=== PATIENT | male | born 1955 | race Caucasian/White ===

== ENCOUNTER → 2018-06-18 | Outpatient (CLI) | payer OTHER | END | disposition home or self-care (01) | LOC: RADMRIMAIN 06:25 | PROVIDERS: ATTEND Nurse Practitioner | DX: Z53.9 Procedure and treatment not carried out, unspecified reason (principal) ==

== ENCOUNTER 2018-09-24 18:47 | Inpatient (IN) | payer OTHER ==
[2018-09-24] MEDS ORDERED: SODIUM CHLORIDE 0.9% 1,000 ML IV ONE (19:49)
[2018-09-24] MEDS ORDERED: ceFAZolin IN SWFI 2 GM/20 ML SYRINGE IVP ONE (19:49)
--- NOTE | 2018-09-24 19:57 | ED ---
Lower Extremity Injury HPI - General Chief Complaint: Extremity Injury, Lower Stated Complaint: red line on left foot poss infection Time Seen by Provider: 09/24/18 19:34 Source: patient, RN notes reviewed, old records reviewed Mode of arrival: ambulatory Limitations: no limitations - History of Present Illness Initial Comments: Patient is a 63-year-old male with history of diabetes presents emergency Department today with complaints of significant swelling over his left second toe and redness and pain going up the foot and the lower leg. Patient reports that his symptoms started 2 days ago. He states that he's had a previous wound over his bottom of his left foot and it was managed by Dr. Browning. Patient states that she he recently has A1c checked was 6.1. He otherwise has been doing well. He denies any fevers or chills. He reports that he's been having some tenderness and swelling in his left calf for a few weeks. Patient states t hat he seems to always have some or swelling on the left leg. He reports he's noticed increased erythema extending up the leg. - Related Data Home Medications Medication Instructions Recorded Confirmed Aspirin [Adult Low Dose Aspirin EC] 81 mg PO DAILY 02/24/16 09/24/18 Clopidogrel [Plavix] 75 mg PO DAILY 02/24/16 09/24/18 Enalapril [Vasotec] 20 mg PO DAILY 02/24/16 09/24/18 Methadone HCl [Dolophine HCl] 20 mg PO Q6H PRN 02/24/16 09/24/18 Carvedilol [Coreg] 12.5 mg PO BID 09/24/18 09/24/18 Gabapentin 800 mg PO QID 09/24/18 09/24/18 Simvastatin 40 mg PO DAILY 09/24/18 09/24/18 metFORMIN HCL 1,000 mg PO BID 09/24/18 09/24/18 Allergies Allergy/AdvReac Type Severity Reaction Status Date / Time nitroglycerin AdvReac Unknown Verified 09/24/18 20:56 Review of Systems ROS Statement: Those systems with pertinent positive or pertinent negative responses have been documented in the HPI. ROS Other: All systems not noted in ROS Statement are negative. Past Medical History Past Medical History: Coronary Artery Disease (CAD), Diabetes Mellitus, Hyperlipidemia, Hypertension, Vascular Disorder History of Any Multi-Drug Resistant Organisms: None Reported Past Surgical History: Coronary Bypass/CABG, Heart Catheterization, Heart Catheterization With Stent, Orthopedic Surgery Additional Past Surgical History / Comment(s): left wrist subluxed tendon repair, bilateral cataract removal, fem pop bypass 2013 Past Anesthesia/Blood Transfusion Reactions: No Reported Reaction Date of Last Stent Placement:: 1999 Past Psychological History: No Psychological Hx Reported Smoking Status: Former smoker Past Alcohol Use History: None Reported Past Drug Use History: None Reported - Past Family History Mother Family Medical History: No Reported History Father Family Medical History: Coronary Artery Disease (CAD) General Exam - General Exam Comments Initial Comments: 63-year-old male. Alert and oriented 3. Patient appears in no significant distress. Limitations: no limitations General appearance: alert, in no apparent distress Head exam: Present: atraumatic, normocephalic, normal inspection Eye exam: Present: normal appearance, PERRL, EOMI. Absent: scleral icterus, conjunctival injection, periorbital swelling ENT exam: Present: normal exam, mucous membranes moist Neck exam: Present: normal inspection. Absent: tenderness, meningismus, lymphadenopathy Respiratory exam: Present: normal lung sounds bilaterally. Absent: respiratory distress, wheezes, rales, rhonchi, stridor Cardiovascular Exam: Present: regular rate, normal rhythm, normal heart sounds. Absent: systolic murmur, diastolic murmur, rubs, gallop, clicks GI/Abdominal exam: Present: soft, normal bowel sounds. Absent: distended, tenderness, guarding, rebound, rigid Extremities exam: Present: normal inspection, full ROM, normal capillary refill. Absent: tenderness, pedal edema, joint swelling, calf tenderness Left Knee exam: Present: normal inspection, full ROM Lower Leg exam: Present: full ROM, tenderness, swelling, erythema (Patient has tenderness, swelling erythema extending up the lower leg."). Absent: normal inspection Ankle exam: Present: normal inspection, full ROM Foot/Toe exam: Present: full ROM, swelling (Patient has significant swelling and pus draining from the medial aspect of the left second toe. It appears to be the source from an ingrown toenail.), erythema (Erythema extend from the second toe to the dorsum of the foot.). Absent: normal inspection, abrasion Neurovascular tendon exam: Present: no vascular compromise Gait: observed and limited by pain Back exam: Present: normal inspection Neurological exam: Present: alert, oriented X3, CN II-XII intact Psychiatric exam: Present: normal affect, normal mood Skin exam: Present: warm, dry, intact, normal color. Absent: rash Course Vital Signs 09/24/18 19:00 Temperature 98.7 F Pulse Rate 71 Respiratory 18 Rate Blood Pressure 166/95 O2 Sat by Pulse 97 Oximetry Medical Decision Making - Medical Decision Making Patient is a 63-year-old male presents today with a left second toe infection. He has history of diabetes. 2 infection is related to an ingrown toenail. He has significant erythema and swelling over the distal toe. X-ray was completely negative for osteomyelitis at this time. He does have extensive redness and swelling of the leg. I did do a Doppler ultrasound is negative for DVT. Patient's labwork was reviewed and unremarkable. Patient did have blood cultures obtained. Patient started on 2 g of Kefzol. I will initiate the Patient on Zosyn and vancomycin will keep the Patient in for diabetic ulcer. We'll consult who took care of patient's previous left foot ulceration. - Lab Data Result diagrams: 09/24/18 20:24 09/24/18 20:24 Lab Results 09/24/18 09/24/18 09/24/18 Range/Units 20:24 20:24 20:24 WBC 7.1 (3.8-10.6) k/uL RBC 5.46 (4.30-5.90) m/uL Hgb 16.2 (13.0-17.5) gm/dL Hct 47.0 (39.0-53.0) % MCV 86.1 (80.0-100.0) fL MCH 29.7 (25.0-35.0) pg MCHC 34.5 (31.0-37.0) g/dL RDW 15.0 (11.5-15.5) % Plt Count 171 (150-450) k/uL Neutrophils % 70 % Lymphocytes % 20 % Monocytes % 6 % Eosinophils % 2 % Basophils % 1 % Neutrophils # 5.0 (1.3-7.7) k/uL Lymphocytes # 1.4 (1.0-4.8) k/uL Monocytes # 0.5 (0-1.0) k/uL Eosinophils # 0.2 (0-0.7) k/uL Basophils # 0.1 (0-0.2) k/uL Sodium 139 (137-145) mmol/L Potassium 4.1 (3.5-5.1) mmol/L Chloride 99 (98-107) mmol/L Carbon Dioxide 28 (22-30) mmol/L Anion Gap 12 mmol/L BUN 15 (9-20) mg/dL Creatinine 0.82 (0.66-1.25) mg/dL Est GFR (CKD-EPI)AfAm >90 (>60 ml/min/1.73 sqM) Est GFR (CKD-EPI)NonAf >90 (>60 ml/min/1.73 sqM) Glucose 194 H (74-99) mg/dL Plasma Lactic Acid Truman 1.7 (0.7-2.0) mmol/L Calcium 9.6 (8.4-10.2) mg/dL Total Bilirubin 1.4 H (0.2-1.3) mg/dL AST 25 (17-59) U/L ALT 14 L (21-72) U/L Alkaline Phosphatase 62 (38-126) U/L Total Protein 7.4 (6.3-8.2) g/dL Albumin 4.4 (3.5-5.0) g/dL - Radiology Data Radiology results: report reviewed Doppler ultrasound is negative for DVT. No x-ray evidence for osteomyelitis with particular attention to the left second toe. Disposition Clinical Impression: Ingrown toenail with infection, Left leg cellulitis, Diabetes Disposition: HOME SELF-CARE Condition: Good Is patient prescribed a controlled substance at d/c from ED?: No Referrals: Justin Mckinley DO [Primary Care Provider] - 1-2 days Time of Disposition: 21:36
[2018-09-24 20:40] LABS: Basophils # (A) 0.1 k/uL (0-0.2); Basophils % (A) 1 %; Eosinophils # (A) 0.2 k/uL (0-0.7); Eosinophils % (A) 2 %; HGB 16.2 gm/dL (13.0-17.5); Lymphocytes # (A) 1.4 k/uL (1.0-4.8); Lymphocytes % (A) 20 %; MCH 29.7 pg (25.0-35.0); MCHC 34.5 g/dL (31.0-37.0); MCV 86.1 fL (80.0-100.0); Mean Platelet Volume 8.4; Monocytes # (A) 0.5 k/uL (0-1.0); Monocytes % (A) 6 %; Neutrophils % (A) 70 %; Platelet Count 171 k/uL (150-450); RBC 5.46 m/uL (4.30-5.90); WBC 7.1 k/uL (3.8-10.6)
--- NOTE | 2018-09-24 20:42 | XR ---
EXAMINATION TYPE: XR foot complete LT DATE OF EXAM: 09/24/2018 CLINICAL HISTORY: The second digit redness and swelling. TECHNIQUE: Frontal, lateral, and oblique images of the left foot are obtained. COMPARISON: None FINDINGS: There is no acute fracture/dislocation evident in the left foot. Flexion in the toes is pr esent. Accessory ossicles near cuboid bone are seen. No suspicious cortical destruction or periosteal reaction is present. Mild subcutaneous edema along plantar surface hindfoot level is seen IMPRESSION: There is no convincing radiographic evidence for acute osteomyelitis with particular att ention to left second toe.
--- NOTE | 2018-09-24 20:47 | US ---
EXAMINATION TYPE: US venous doppler duplex LE LT DATE OF EXAM: 09/24/2018 8:34 PM COMPARISON: NONE CLINICAL HISTORY: Pain. Left leg pain and swelling from ingrown toe nail. SIDE PERFORMED: Left TECHNIQUE: The lower extremity deep venous system is examined utilizing real time linear array sonog melissa with graded compression, doppler sonography and color-flow sonography. VESSELS IMAGED: External Iliac Vein (EIV) Common Femoral Vein Deep Femoral Vein Greater Saphenous Vein * Femoral Vein Popliteal Vein Small Saphenous Vein * Proximal Calf Veins (* superficial vessels) Left Leg: Negative for DVT Grayscale, color doppler, spectral doppler imaging performed of the deep veins of the left lower extr emity. There is normal flow, compressibility, vascular waveforms. IMPRESSION: No ultrasound evidence for acute DVT in the left lower extremity.
[2018-09-24 20:53] LABS: ALT 14 U/L (21-72); AST 25 U/L (17-59); Albumin 4.4 g/dL (3.5-5.0); Alkaline Phosphatase 62 U/L (38-126); Anion Gap 12 mmol/L; Blood Urea Nitrogen 15 mg/dL (9-20); Calcium 9.6 mg/dL (8.4-10.2); Carbon Dioxide 28 mmol/L (22-30); Chloride 99 mmol/L (98-107); Glucose 194 mg/dL (74-99); Potassium 4.1 mmol/L (3.5-5.1); Sodium 139 mmol/L (137-145); Total Bilirubin 1.4 mg/dL (0.2-1.3); Total Protein 7.4 g/dL (6.3-8.2)
[2018-09-24] MEDS: SODIUM CHLORIDE 0.9% 1,000 ML IV SCH (21:00)
[2018-09-24] MEDS ORDERED: NALOXONE 0.4 MG/ML 1 ML VIAL IV PRN (21:37)
[2018-09-24] MEDS ORDERED: ONDANSETRON 4 MG/2 ML VIAL IVP PRN (21:37)
[2018-09-24] MEDS ORDERED: ACETAMINOPHEN TAB 325 MG TAB PO PRN (21:37)
[2018-09-24] MEDS ORDERED: VANCOMYCIN IV PER PHARMACY 1 EACH MISC MISCELLANE PRN (21:41)
[2018-09-24] MEDS ORDERED: VANCOMYCIN 1,750 MG in SODIUM CHLORIDE 0.9% 500 ML 500 ML IVPB ONE (22:00)
[2018-09-24] MEDS: GABAPENTIN 400 MG CAP PO SCH (23:00)
[2018-09-24] MEDS: KETOROLAC 30 MG/ML 1 ML VIAL IVP PRN (23:04)
[2018-09-25] MEDS: PIPERACILLIN-TAZOBACTAM 3.375 GM in SODIUM CHLORIDE 0.9% 100 ML IVPB SCH ×3 (02:06→16:28)
[2018-09-25] MEDS: SODIUM CHLORIDE 0.9% 1,000 ML IV SCH ×2 (05:45→19:56)
[2018-09-25] MEDS: CARVEDILOL 12.5 MG TAB PO SCH ×2 (08:07→18:14)
[2018-09-25] MEDS: CLOPIDOGREL 75 MG TAB PO SCH (08:08)
[2018-09-25] MEDS: ASPIRIN 81 MG PO SCH (08:08)
[2018-09-25] MEDS: ATORVASTATIN 20 MG TAB PO SCH (08:08)
[2018-09-25] MEDS: GABAPENTIN 400 MG CAP PO SCH ×4 (08:08→21:54)
[2018-09-25] MEDS: METHADONE 10 MG TAB PO PRN (08:08)
[2018-09-25] MEDS: LISINOPRIL 20 MG TAB PO SCH (08:09)
[2018-09-25] MEDS: metFORMIN 500 MG TAB PO SCH ×2 (08:09→19:56)
[2018-09-25] MEDS: KETOROLAC 30 MG/ML 1 ML VIAL IVP PRN ×2 (08:10→19:56)
[2018-09-25 09:57] VITALS: BMI 28.1
[2018-09-25] MEDS: VANCOMYCIN 1,750 MG in SODIUM CHLORIDE 0.9% 500 ML 500 ML IVPB SCH ×2 (11:25→21:52)
[2018-09-25] MEDS: MORPHINE SULFATE 4 MG/ML SYRINGE IV PRN ×3 (11:40→20:36)
--- NOTE | 2018-09-25 17:14 | P.GSCN ---
History of Present Illness Consult date: 09/25/18 Reason for Consult: Erythema left foot second toe, possible infection. Requesting physician: Yeyo Hernandez History of present illness: This is a 63-year-old male patient who is followed by Justin Mckinley. He is a past medical history significant for coronary artery disease status post coronary artery bypass grafting in 2000 and 2011, diabetes mellitus type 2, hypertension, hyperlipidemia, daily marijuana use, history of nicotine dependence with in 1987, family history of early onset coronary artery disease with his dad passing away at age 54 from a myocardial infarction and vascular disorder status post fem-pop bypass in 2012. The patient presented to the emergency department here at [facility] yesterday with complaints of significant redness, pain and swelling to his left foot second left toe. He reports that it started as an ingrown toenail on Monday and progressed with redness and swelling over a 2 day period. He denies any fevers, chills, nausea, vomiting, or recent trauma. His initial lab work showed a WBC count of 7.1, hemoglobin 16.2, BUN 15, creatinine 0.8 to any glucose level of 194. For further evaluation and x-ray was completed which demonstrated no convincing radiographic evidence for acute osteomyelitis with particular attention to the left second toe. A venous duplex study was also completed to his bilateral lower extremities which did not show any evidence for acute DVT in the left lower extremity. Due to the patient's presenting symptoms and history of wound care management by Dr. Browning a consult was placed to Dr. Browning for further evaluation and treatment recommendations. Review of Systems A 14 point review of systems was completed and was negative except as mentioned in HPI. Past Medical History Past Medical History: Coronary Artery Disease (CAD), Diabetes Mellitus, Hyp erlipidemia, Hypertension, Vascular Disorder History of Any Multi-Drug Resistant Organisms: None Reported Past Surgical History: Adenoidectomy, Coronary Bypass/CABG, Heart Catheterization, Heart Catheterization With Stent, Orthopedic Surgery, Tonsill ectomy Additional Past Surgical History / Comment(s): left wrist subluxed tendon repair, bilateral cataract removal, fem pop bypass 2012, history of coronary artery bypass grafting 1 vessel in 2000 and a CABG 3 in 2011. Past Anesthesia/Blood Transfusion Reactions: No Reported Reaction Date of Last Stent Placement:: 1999 Past Psychological History: No Psychological Hx Reported Smoking Status: Former smoker (Quit smoking in 1987.) Past Alcohol Use History: None Reported Past Drug Use History: None Reported, Marijuana Additional Drug Use History / Comment(s): Daily marijuana use in the form of cookies. - Past Family History Mother Family Medical History: No Reported History, Dementia Additional Family Medical History / Comment(s): at age 96 Father Family Medical History: Coronary Artery Disease (CAD), Myocardial Infarction ([place]) Additional Family Medical History / Comment(s): at age 54. Medications and Allergies Home Medications Medication Instructions Recorded Confirmed Type Aspirin [Adult Low Dose Aspirin EC] 81 mg PO DAILY 02/24/16 09/24/18 History Clopidogrel [Plavix] 75 mg PO DAILY 02/24/16 09/24/18 History Enalapril [Vasotec] 20 mg PO DAILY 02/24/16 09/24/18 History Methadone HCl [Dolophine HCl] 20 mg PO Q6H PRN 02/24/16 09/24/18 History Carvedilol [Coreg] 12.5 mg PO BID 09/24/18 09/24/18 History Gabapentin 800 mg PO QID 09/24/18 09/24/18 History Simvastatin 40 mg PO DAILY 09/24/18 09/24/18 History metFORMIN HCL 1,000 mg PO BID 09/24/18 09/24/18 History Allergies Allergy/AdvReac Type Severity Reaction Status Date / Time nitroglycerin AdvReac Unknown Verified 09/24/18 20:56 Surgical - Exam Vital Signs Temp Pulse Resp BP Pulse Ox 98.7 F 71 18 166/95 97 09/24/18 19:00 09/24/18 19:00 09/24/18 19:00 09/24/18 19:00 09/24/18 19:00 - General well developed, well nourished, no distress, no pain, obese - Eyes PERRL, normal ocular movement - ENT normal pinna, normal nares, normal mucosa, no hearing loss, no congestion, dentures (Implants) - Neck Neck is supple, no lymphadenopathy. no masses, no bruits, trachea midline, no venous distension - Respiratory Lungs sounds essentially clear throughout. Respirations are symmetrical and nonlabored. No wheezing. Oxygen saturation 94% on room air. - Cardiovascular Irregular rhythm with controlled rate. S1 and S2 present. Negative for S3, gallop or murmur. +1 edema to his left lower extremity. Peripheral pulses palpable. - Abdomen Soft, nontender and nondistended. Active bowel sounds all 4 abdominal quadrants. No guarding or rigidity. No organomegaly. - Genitourinary Deferred - Rectum Deferred - Integumentary Skin is warm and dry. No clubbing or cyanosis is present. Left foot second toe with erythema, small blistered area to the tip of his second toe left foot. No drainage present. - Neurologic normal coordination, normal sensation - Musculoskeletal normal gait, normal posture - Psychiatric oriented to time, oriented to person, oriented to place, speech is normal, memory intact Results - Labs 09/24/18 20:24 09/24/18 20:24 Abnormal Lab Results - Last 24 Hours (Table) 09/24/18 Range/Units 20:24 Glucose 194 H (74-99) mg/dL Total Bilirubin 1.4 H (0.2-1.3) mg/dL ALT 14 L (21-72) U/L Microbiology - Last 24 Hours (Table) 09/24/18 19:50 Gram Stain - Preliminary Toe - Left Second Wound Culture - Preliminary Diabetes panel 09/24/18 Range/Units 20:24 Sodium 139 (137-145) mmol/L Potassium 4.1 (3.5-5.1) mmol/L Chloride 99 (98-107) mmol/L Carbon Dioxide 28 (22-30) mmol/L BUN 15 (9-20) mg/dL Creatinine 0.82 (0.66-1.25) mg/dL Glucose 194 H (74-99) mg/dL Calcium 9.6 (8.4-10.2) mg/dL AST 25 (17-59) U/L ALT 14 L (21-72) U/L Alkaline Phosphatase 62 (38-126) U/L Total Protein 7.4 (6.3-8.2) g/dL Albumin 4.4 (3.5-5.0) g/dL Calcium panel 09/24/18 Range/Units 20:24 Calcium 9.6 (8.4-10.2) mg/dL Albumin 4.4 (3.5-5.0) g/dL Pituitary panel 09/24/18 Range/Units 20:24 Sodium 139 (137-145) mmol/L Potassium 4.1 (3.5-5.1) mmol/L Chloride 99 (98-107) mmol/L Carbon Dioxide 28 (22-30) mmol/L BUN 15 (9-20) mg/dL Creatinine 0.82 (0.66-1.25) mg/dL Glucose 194 H (74-99) mg/dL Calcium 9.6 (8.4-10.2) mg/dL Adrenal panel 09/24/18 Range/Units 20:24 Sodium 139 (137-145) mmol/L Potassium 4.1 (3.5-5.1) mmol/L Chloride 99 (98-107) mmol/L Carbon Dioxide 28 (22-30) mmol/L BUN 15 (9-20) mg/dL Creatinine 0.82 (0.66-1.25) mg/dL Glucose 194 H (74-99) mg/dL Calcium 9.6 (8.4-10.2) mg/dL Total Bilirubin 1.4 H (0.2-1.3) mg/dL AST 25 (17-59) U/L ALT 14 L (21-72) U/L Alkaline Phosphatase 62 (38-126) U/L Total Protein 7.4 (6.3-8.2) g/dL Albumin 4.4 (3.5-5.0) g/dL Assessment and Plan Assessment: 1. Ingrown toenail with cellulitis to his left foot second toe. 2. Diabetes mellitus type 2. 3. History of coronary artery disease status post coronary artery bypass grafting surgery in 2000 and 2011. 4. History of hypertension. 5. History of hyperlipidemia. 6. Daily marijuana use. 7. Vascular disorder with previous fem-pop bypass in 2012. 8. Family history of early onset coronary artery disease with his dad passing away from myocardial infarction at age 54. 9. History of nicotine dependence quit smoking in 1987. Plan: The patient was seen and examined. Chart diagnostics were reviewed. His case was discussed with Dr. Fred Browning from vascular surgery. At this time continue antibiotic management, we will consult Dr. Cohen from infectious disease. Recommend offloading to the left foot with no weightbearing. Local wound care, to breast to fully gauze in between the left great toe and second toe, cushioned with 4 x 4 gauze and wrapped with Kerlix. Medical management recommendations per primary care service. Thank you for this consult and we'll look forward to working with you in the care of your patient. Time with Patient: Greater than 30
[2018-09-25 20:30] LABS: Glucose,Whole Blood 157 mg/dL (75-99)
--- NOTE | 2018-09-26 00:09 | P.HPIM ---
History of Present Illness H&P Date: 09/25/18 Chief Complaint: Toe infection Patient is a 63-year-old male with a known history of hypertension, diabetes type 2 [id number], hyperlipidemia, coronary artery disease with history of CABG and stent placement, peripheral vascular disease and previous history of smoking came to ER with the complaints of swelling and redness over the left second toe and worsening pain for the last 2 days. Patient also having redness extending up to the ankle and worsening pain which made her to come to the hospital. He states that he's had a previous wound over his bottom of his left foot and it was managed by Dr. Browning. Patient states that she he recently has A1c checked was 6.1. He otherwise has been doing well. He denies any fevers or chills. Denied any chest pain or shortness of breath. X-ray of the left foot showed no convincing radiographic evidence for acute or stomatitis with particular attention to left second toe. No leukocytosis. Left lower extremities duplex scan is negative for DVT. Review of Systems Constitutional: Patient denies any fever or chills . No generalized weakness or weight loss. Abdomen: Patient denied nausea vomiting and diarrhea and abdominal pain. Cardiovascular: Patient denies any chest pain or short of breath no palpitations. Respiratory: patient denied any cough is from production. No shortness of breath Neurologic: Patient denied any numbness or tingling headache. Musculoskeletal: Patient denies any complaints of joint swelling or deformity. Left foot pain Skin: Negative Psychiatric: Negative Endocrine: No heat or cold intolerance. No recent weight gain. Genitourinary: No dysuria or hematuria. All other 14 point ROS negative except the above Past Medical History Past Medical History: Coronary Artery Disease (CAD), Diabetes Mellitus, Hyperlipidemia, Hypertension, Vascular Disorder History of Any Multi-Drug Resistant Organisms: None Reported Past Surgical History: Coronary Bypass/CABG, Heart Catheterization, Heart Catheterization With Stent, Orthopedic Surgery Additional Past Surgical History / Comment(s): left wrist subluxed tendon repair, bilateral cataract removal, fem pop bypass 2012 Past Anesthesia/Blood Transfusion Reactions: No Reported Reaction Date of Last Stent Placement:: 1999 Past Psychological History: No Psychological Hx Reported Smoking Status: Former smoker Past Alcohol Use History: None Reported Past Drug Use History: None Reported - Past Family History Mother Family Medical History: No Reported History Father Family Medical History: Coronary Artery Disease (CAD) Medications and Allergies Home Medications Medication Instructions Recorded Confirmed Type Aspirin [Adult Low Dose Aspirin EC] 81 mg PO DAILY 02/24/16 09/24/18 History Clopidogrel [Plavix] 75 mg PO DAILY 02/24/16 09/24/18 History Enalapril [Vasotec] 20 mg PO DAILY 02/24/16 09/24/18 History Methadone HCl [Dolophine HCl] 20 mg PO Q6H PRN 02/24/16 09/24/18 History Carvedilol [Coreg] 12.5 mg PO BID 09/24/18 09/24/18 History Gabapentin 800 mg PO QID 09/24/18 09/24/18 History Simvastatin 40 mg PO DAILY 09/24/18 09/24/18 History metFORMIN HCL 1,000 mg PO BID 09/24/18 09/24/18 History Allergies Allergy/AdvReac Type Severity Reaction Status Date / Time nitroglycerin AdvReac Unknown Verified 09/24/18 20:56 Physical Exam Vitals: Vital Signs Temp Pulse Pulse Resp BP BP Pulse Ox 09/25/18 12:42 97.9 F 54 L 18 166/76 94 L 09/25/18 08:06 60 175/82 09/25/18 05:34 97.5 F L 53 L 18 142/73 94 L 09/24/18 23:30 16 09/24/18 23:00 98 F 62 16 167/90 92 L 09/24/18 21:51 98.8 F 65 18 160/89 97 09/24/18 19:00 98.7 F 71 18 166/95 97 Intake and Output 09/24/18 09/25/18 09/25/18 22:59 06:59 14:59 Intake Total 1360 1999 Balance 1360 1999 Intake: Intake, IV Titration 1000 1400 Amount Piperacillin-Tazobactam 3 100 100 .375 gm In Sodium Chloride 0.9% 100 ml @ 25 mls/hr IVPB Q8HR [facility] Rx# :[id number] Sodium Chloride 0.9% 1, 400 800 000 ml @ 100 mls/hr IV . Q10H [facility] Rx#:[id number] Vancomycin 1,750 mg In 500 500 Sodium Chloride 0.9% 500 ml 500 ml @ 167 mls/hr IVPB Q12H [facility] Rx#: [id number] Oral 360 600 Other: Voiding Method Toilet # Voids 1 2 Weight 102.058 kg 102.058 kg PHYSICAL EXAMINATION: Patient is lying in the bed comfortably, no acute distress, awake alert and oriented.. HEENT: Normocephalic. Neck is supple. Pupils reactive. Nostrils clear. Oral cavity is moist. Ears reveal no drainage. Neck reveals no JVD, carotid bruits, or thyromegaly. CHEST EXAMINATION: Trachea is central. Symmetrical expansion. Lung lockwood clear to auscultation and percussion. CARDIAC: Normal S1, S2 with no gallops. No murmurs ABDOMEN: Soft. Bowel sounds normal. No organomegaly. No abdominal bruits. Extremities: reveal no edema. No clubbing or cyanosis Left second toe small ulceration on the medial side with redness and tenderness extending up to ankle. No purulent drainage noted. Neurologically awake, alert, oriented x3 with well-coordinated movements. No focal deficits noted Skin: No rash or skin lesions. Psychiatric: Coperative. Nonsuicidal Musculoskeletal: No joint swelling or deformity. Normal range of motion. Results CBC & Chem 7: 09/24/18 20:24 09/24/18 20:24 Labs: Abnormal Lab Results - Last 24 Hours (Table) 09/24/18 Range/Units 20:24 Glucose 194 H (74-99) mg/dL Total Bilirubin 1.4 H (0.2-1.3) mg/dL ALT 14 L (21-72) U/L Microbiology - Last 24 Hours (Table) 09/24/18 19:50 Gram Stain - Preliminary Toe - Left Second Wound Culture - Preliminary Thrombosis Risk Factor Assmnt - DVT/VTE Prophylaxis DVT/VTE Prophylaxis: Pharmacologic Prophylaxis ordered - Choose All That Apply Any of the Below Risk Factors Present?: Yes Each Factor Represents 1 point: Obesity (BMI >25) Each Risk Factor Represents 2 Points: Age 61-74 years Thrombosis Risk Factor Assessment Total Risk Factor Score: 3 Thrombosis Risk Factor Assessment Level: Moderate Risk Assessment and Plan Assessment: Left second toe diabetic foot infection with cellulitis extending up to ankle. Peripheral vascular disease Coronary artery disease and history of CABG and stent placement Hypertension Diabetes type 2 nausea independent Hyperlipidemia Diabetic peripheral neuropathy Chronic back pain on methadone for a long time. Previous history of smoking DVT prophylaxis Plan: Patient will be continued on broad-spectrum antibiotics in the form of vancom ycin and Zosyn. Follow up wound cultures. Vascular surgery was consulted. Continue the home medications including aspirin statins and Plavix, Coreg and lisinopril. Continue the sliding scale and diabetic medications. Follow closely and further recommendations based on the clinical course. Time with Patient: Greater than 30
[2018-09-26] MEDS: PIPERACILLIN-TAZOBACTAM 3.375 GM in SODIUM CHLORIDE 0.9% 100 ML IVPB SCH ×3 (00:58→16:30)
[2018-09-26] MEDS: HEPARIN SODIUM,PORCINE 5,000 UNIT/ML 1 ML VIAL SQ SCH ×3 (00:59→14:21)
[2018-09-26] MEDS: SODIUM CHLORIDE 0.9% 1,000 ML IV SCH ×3 (03:22→22:31)
[2018-09-26] MEDS: METHADONE 10 MG TAB PO PRN ×4 (05:04→22:30)
[2018-09-26 07:04] LABS: Glucose,Whole Blood 94 mg/dL (75-99)
[2018-09-26] MEDS: CARVEDILOL 12.5 MG TAB PO SCH ×2 (08:13→14:21)
[2018-09-26] MEDS: ASPIRIN 81 MG PO SCH (08:17)
[2018-09-26] MEDS: metFORMIN 500 MG TAB PO SCH ×2 (08:17→21:32)
[2018-09-26] MEDS: GABAPENTIN 400 MG CAP PO SCH ×4 (08:17→21:05)
[2018-09-26] MEDS: ATORVASTATIN 20 MG TAB PO SCH (08:17)
[2018-09-26] MEDS: LISINOPRIL 20 MG TAB PO SCH (08:17)
[2018-09-26] MEDS: CLOPIDOGREL 75 MG TAB PO SCH (08:17)
[2018-09-26] MEDS ORDERED: VANCOMYCIN TROUGH DUE 1 EACH MISC MISCELLANE ONE (09:00)
[2018-09-26] MEDS: VANCOMYCIN 1,750 MG in SODIUM CHLORIDE 0.9% 500 ML 500 ML IVPB SCH ×2 (09:04→22:31)
--- NOTE | 2018-09-26 09:49 | P.CONS ---
History of Present Illness - Reason for Consult Consult date: 09/26/18 Infected left second toe, antibiotic management - History of Present Illness This is a 63-year-old male patient with past medical history significant for coronary artery disease status post coronary artery bypass grafting in 2000 and 2011, diabetes mellitus type 2, hypertension, hyperlipidemia, daily marijuana use, history of nicotine dependence quit in 1987, vascular disorder status post fem-pop bypass in 2012. Patient gives history that he developed an ingrown toenail on his left second toe on Monday and a progressed with redness and swelling over a 2 day. He complains of redness, pain and swelling. No fever or chills. No recent trauma. No change in appetite, nausea or vomiting. Patient came into [facility] emergency center for evaluation. White count is 7.1, creatinine 0.82, albumin 4.4. He has been afebrile. Blood culture showing no growth after 24 hours and wound cultures in progress. Foot x-ray revealed no convincing evidence of acute osteomyelitis. Venous duplex study of bilateral lower extremities negative for DVT. Patient has been started on Zosyn and vancomycin and admitted to the [facility] floor. Patient has been seen by Dr. Browning and local wound care has been addressed. Regarding patient's diabetes, hemoglobin A1c is currently pending. He states his previous hemoglobin A1c was at 6.1 which she has brought down from 12. Review of Systems All systems: negative Constitutional: Denies anorexia, Denies chills, Denies fatigue, Denies fever, Denies lethargy, Denies malaise, Denies poor appetite, Denies weakness Ears, nose, mouth and throat: Denies dental pain, Denies dysphagia, Denies mouth pain, Denies nasal congestion, Denies nasal discharge, Denies vertigo Cardiovascular: Denies chest pain, Denies dyspnea on exertion, Denies edema, Den ies leg edema, Denies lightheadedness, Denies syncope Respiratory: Denies cough, Denies cough with sputum, Denies dyspnea, Denies excessive sputum, Denies hemoptysis, Denies home oxygen, Denies wheezing Gastrointestinal: Denies constipation, Denies diarrhea, Denies loss of appetite, Denies nausea, Denies vomiting Genitourinary: Denies dysuria, Denies urinary frequency, Denies urinary hesitancy, Denies urinary retention Musculoskeletal: Denies frequent falls, Denies gait dysfunction, Denies muscle weakness Integumentary: Denies wounds Neurological: Denies confusion, Denies gait dysfunction, Denies seizures Psychiatric: Denies anxiety, Denies confusion, Denies depression Endocrine: Denies fatigue Past Medical History Past Medical History: Coronary Artery Disease (CAD), Diabetes Mellitus, Hyperlipidemia, Hypertension, Vascular Disorder History of Any Multi-Drug Resistant Organisms: None Reported Past Surgical History: Coronary Bypass/CABG, Heart Catheterization, Heart Catheterization With Stent, Orthopedic Surgery Additional Past Surgical History / Comment(s): left wrist subluxed tendon repair, bilateral cataract removal, fem pop bypass 2012 Past Anesthesia/Blood Transfusion Reactions: No Reported Reaction Date of Last Stent Placement:: 1999 Past Psychological History: No Psychological Hx Reported Smoking Status: Former smoker Past Alcohol Use History: None Reported Additional Past Alcohol Use History / Comment(s): Patient was a smoker and quit in 1987. He uses daily marijuana cookie for insomnia. He denies any illicit drug use or alcohol use. He lives at home with his girlfriend and 2 cats. 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 He denies any significant travel but did go to [facility] last year. No service. 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 Past Drug Use History: None Reported - Past Family History Mother Family Medical History: No Reported History Additional Family Medical History / Comment(s): at age 96 Father Family Medical History: Coronary Artery Disease (CAD) Additional Family Medical History / Comment(s): at age 54. Medications and Allergies Home Medications Medication Instructions Recorded Confirmed Type Aspirin [Adult Low Dose Aspirin EC] 81 mg PO DAILY 02/24/16 09/24/18 History Clopidogrel [Plavix] 75 mg PO DAILY 02/24/16 09/24/18 History Enalapril [Vasotec] 20 mg PO DAILY 02/24/16 09/24/18 History Methadone HCl [Dolophine HCl] 20 mg PO Q6H PRN 02/24/16 09/24/18 History Carvedilol [Coreg] 12.5 mg PO BID 09/24/18 09/24/18 History Gabapentin 800 mg PO QID 09/24/18 09/24/18 History Simvastatin 40 mg PO DAILY 09/24/18 09/24/18 History metFORMIN HCL 1,000 mg PO BID 09/24/18 09/24/18 History Allergies Allergy/AdvReac Type Severity Reaction Status Date / Time nitroglycerin AdvReac Unknown Verified 09/24/18 20:56 Physical Exam Vitals: Vital Signs Temp Pulse Resp BP Pulse Ox 09/26/18 05:00 97.7 F 64 17 157/85 93 L 09/25/18 23:25 17 09/25/18 21:00 98 F 56 L 17 176/85 93 L 09/25/18 12:42 97.9 F 54 L 18 166/76 94 L Intake and Output 09/25/18 09/26/18 09/26/18 22:59 06:59 14:59 Intake Total 1660 1370 Balance 1660 1370 Intake: Intake, IV Titration 700 550 Amount Piperacillin-Tazobactam 3 50 .375 gm In Sodium Chloride 0.9% 100 ml @ 25 mls/hr IVPB Q8HR [facility] Rx# :[id number] Sodium Chloride 0.9% 1, 200 000 ml @ 100 mls/hr IV . Q10H [facility] Rx#:[id number] Vancomycin 1,750 mg In 500 500 Sodium Chloride 0.9% 500 ml 500 ml @ 167 mls/hr IVPB Q12H [facility] Rx#: [id number] Oral 960 820 Other: Voiding Method Toilet Toilet Toilet # Voids 1 2 Gen: This is a 63-year-old male. He is resting in bed and appears to be comfortable and in no acute distress. HEENT: Head is atraumatic, normocephalic. Pupils equal, round. Sclerae is anicteric. Conjunctiva pink. Mucous members of the mouth are moist. No thrush noted. NECK: Supple. No JVD. No lymphadenopathy. No thyromegaly. LUNGS: Clear to auscultation. No wheezes or rhonchi. No intercostal retractions. HEART: Regular rate and rhythm. No murmur. ABDOMEN: Soft. Bowel sounds are present. No masses. No tenderness. EXTREMITIES: 1+ left pedal edema. Dressing in place and was not removed for evaluation. Dorsalis pedis +2 on the right. NEUROLOGICAL: Patient is awake, alert and oriented x3. Cranial nerves 2 through 12 are grossly intact. Results Results: Laboratory Results WBC 7.1 k/uL (3.8-10.6) 09/24/18 20:24 RBC 5.46 m/uL (4.30-5.90) 09/24/18 20:24 Hgb 16.2 gm/dL (13.0-17.5) 09/24/18 20:24 Hct 47.0 % (39.0-53.0) 09/24/18 20:24 MCV 86.1 fL (80.0-100.0) 09/24/18 20:24 MCH 29.7 pg (25.0-35.0) 09/24/18 20:24 MCHC 34.5 g/dL (31.0-37.0) 09/24/18 20:24 RDW 15.0 % (11.5-15.5) 09/24/18 20:24 Plt Count 171 k/uL (150-450) 09/24/18 20:24 Neutrophils % 70 % 09/24/18 20:24 Lymphocytes % 20 % 09/24/18 20:24 Monocytes % 6 % 09/24/18 20:24 Eosinophils % 2 % 09/24/18 20:24 Basophils % 1 % 09/24/18 20:24 Neutrophils # 5.0 k/uL (1.3-7.7) 09/24/18 20:24 Lymphocytes # 1.4 k/uL (1.0-4.8) 09/24/18 20:24 Monocytes # 0.5 k/uL (0-1.0) 09/24/18 20:24 Eosinophils # 0.2 k/uL (0-0.7) 09/24/18 20:24 Basophils # 0.1 k/uL (0-0.2) 09/24/18 20:24 Sodium 139 mmol/L (137-145) 09/24/18 20:24 Potassium 4.1 mmol/L (3.5-5.1) 09/24/18 20:24 Chloride 99 mmol/L (98-107) 09/24/18 20:24 Carbon Dioxide 28 mmol/L (22-30) 09/24/18 20:24 Anion Gap 12 mmol/L 09/24/18 20:24 BUN 15 mg/dL (9-20) 09/24/18 20:24 Creatinine 0.82 mg/dL (0.66-1.25) 09/24/18 20:24 Est GFR (CKD-EPI)AfAm >90 (>60 ml/min/1.73 sqM) 09/24/18 20:24 Est GFR (CKD-EPI)NonAf >90 (>60 ml/min/1.73 sqM) 09/24/18 20:24 Glucose 194 mg/dL (74-99) H 09/24/18 20:24 POC Glucose (mg/dL) 94 mg/dL (75-99) 09/26/18 07:02 POC Glu Collection Systems Worker ID Teresa Aguila 09/26/18 07:02 Plasma Lactic Acid Truman 1.7 mmol/L (0.7-2.0) 09/24/18 20:24 Calcium 9.6 mg/dL (8.4-10.2) 09/24/18 20:24 Total Bilirubin 1.4 mg/dL (0.2-1.3) H 09/24/18 20:24 AST 25 U/L (17-59) 09/24/18 20:24 ALT 14 U/L (21-72) L 09/24/18 20:24 Alkaline Phosphatase 62 U/L (38-126) 09/24/18 20:24 Total Protein 7.4 g/dL (6.3-8.2) 09/24/18 20:24 Albumin 4.4 g/dL (3.5-5.0) 09/24/18 20:24 CBC & Chem 7: 09/24/18 20:24 09/24/18 20:24 Labs: Abnormal Lab Results - Last 24 Hours (Table) 09/25/18 Range/Units 20:15 POC Glucose (mg/dL) 157 H (75-99) mg/dL Microbiology - Last 24 Hours (Table) 09/24/18 22:05 Blood Culture - Preliminary Blood No Growth after 24 hours 09/24/18 19:50 Gram Stain - Preliminary Toe - Left Second Wound Culture - Preliminary Assessment and Plan Plan: This is a 63-year-old male presented to the hospital with diabetic ulcer to the left second toe with surrounding cellulitis. Dr. Browning is on consult and managing wound care. Patient is currently on Zosyn and vancomycin. Blood culture showing no growth after 24 hours and wound culture is in process. Continue supportive care including tight glucose control. Further recommendations progresses. The above dictated assessment and findings were discussed with Dr. Cohen. The impression and plan of care have been directed as dictated. Zoie Robles nurse practitioner acting as scribe for Dr. Cohen.
--- NOTE | 2018-09-26 10:15 | P.WNDSOAP ---
Subjective Progress Note Date: 09/26/18 Principal diagnosis: Diabetic ulcer left second toe Patient has no significant complaints during his hospital stay. He has been afebrile and has had no fevers or chills. Objective - Vital Signs Vital signs: Vital Signs Temp 97.7 F 09/26/18 05:00 Pulse 64 09/26/18 05:00 Resp 17 09/26/18 05:00 BP 157/85 09/26/18 05:00 Pulse Ox 93 L 09/26/18 05:00 Intake & Output 09/25/18 09/26/18 09/26/18 18:59 06:59 18:59 Intake Total 1999 3030 Balance 1999 303 Weight 102.058 kg Intake: Intake, IV Titration 1400 1250 Amount Piperacillin-Tazobactam 3 100 50 .375 gm In Sodium Chloride 0.9% 100 ml @ 25 mls/hr IVPB Q8HR [facility] Rx# :[id number] Sodium Chloride 0.9% 1, 800 200 000 ml @ 100 mls/hr IV . Q10H [facility] Rx#:[id number] Vancomycin 1,750 mg In 500 1000 Sodium Chloride 0.9% 500 ml 500 ml @ 167 mls/hr IVPB Q12H [facility] Rx#: [id number] Oral 600 1780 Other: Voiding Method Toilet Toilet Toilet # Voids 2 2 - Exam He has an infected blister on the medial left second toe. - Labs CBC & Chem 7: 09/24/18 20:24 09/24/18 20:24 Labs: Abnormal Lab Results - Last 24 Hours (Table) 09/25/18 Range/Units 20:15 POC Glucose (mg/dL) 157 H (75-99) mg/dL Microbiology - Last 24 Hours (Table) 09/24/18 22:05 Blood Culture - Preliminary Blood No Growth after 24 hours 09/24/18 19:50 Gram Stain - Preliminary Toe - Left Second Wound Culture - Preliminary Assessment and Plan (1) Diabetic ulcer of left foot with fat layer exposed Current Visit: No Status: Acute Code(s): E11.621 - TYPE 2 DIABETES MELLITUS WITH FOOT ULCER; L97.522 - NON-PRS CHRONIC ULCER OTH PRT LEFT FOOT W FAT LAYER EXPOSED SNOMED Code(s): 902640010 Plan: Patient has a diabetic ulcer on the medial left second toe under an infected blister. We did an open debridement removing the top of the blister. This revealed a 1.5 x 1.2 cm underlying ulceration. It appears to be limited to the subcutaneous tissue. We'll treated with absorptive silver and he will continue with his antibiotics. I'll follow him in the wound center as an outpatient.
--- NOTE | 2018-09-26 10:18 | P.WCPCN ---
Wound Center Open Debridement Date of service: 09/26/2018 Surgeon: Nallely Pre-and postop diagnosis: Diabetic ulcer medial left second toe Type of debridement: Open Ulcer location distal medial left second toe Anesthesia: None Signs of infection: Mild redness Other material in the wound that is expected to inhibit healing or promote adjacent tissue breakdown: As noted below Degree of epithelialization: % Method and instrument: Surgical debridement with suture removal scissors Character of the wound after debridement: Clean bloody subcutaneous bed Necrotic or nonviable tissue/ Description of tissue removed: Nonviable soft tissue and slough and blistered skin Pre-debridement measurement: Not measurable Postoperative debridement measurement: 1.5 x 1.2 x 0.1 cm Control of bleeding:Bleeding was easily controlled with saline moistened gauze and light pressure Post debridement dressing: Absorptive silver Patient tolerated procedure well
[2018-09-26 11:20] LABS: Glucose,Whole Blood 137 mg/dL (75-99)
[2018-09-26] MEDS: IBUPROFEN 400 MG TAB PO PRN (14:43)
[2018-09-26 16:38] LABS: Glucose,Whole Blood 104 mg/dL (75-99)
[2018-09-26 21:12] LABS: Glucose,Whole Blood 104 mg/dL (75-99)
--- NOTE | 2018-09-26 23:04 | P.CON ---
Consult Note - . Consult date: 09/26/18 Assessment/Plan:: This is a 63-year-old male patient with past medical history significant for coronary artery disease status post coronary artery bypass grafting in 2000 and 2011, diabetes mellitus type 2, hypertension, hyperlipidemia, daily marijuana u se, history of nicotine dependence quit in 1987, vascular disorder status post fem-pop bypass in 2012. Patient gives history that he developed an ingrown toenail on his left second toe on Monday and a progressed with redness and swelling over a 2 day. He complains of redness, pain and swelling. No fever or chills. No recent trauma. No change in appetite, nausea or vomiting. Patient came into [facility] emergency center for evaluation. White count is 7.1, creatinine 0.82, albumin 4.4. He has been afebrile. Blood culture showing no growth after 24 hours and wound cultures in progress. Foot x-ray revealed no convincing evidence of acute osteomyelitis. Venous duplex study of bilateral lower extremities negative for DVT. Patient has been started on Zosyn and vancomycin and admitted to the [facility] floor. Patient has been seen by Dr. Browning and local wound care has been addressed. Regarding patient's diabetes, hemoglobin A1c is currently pending. He states his previous hemoglobin A1c was at 6.1 which she has brought down from 12.Please see the consult note as dictated by nurse practitioner Mrs. Zoie Robles. 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 He thought it was due to an ingrown nail but is rapidly changed was no obvious swelling redness and feeling poorly. He has lost 75 pounds and improved his diabetes care remarkably. Enjoys been feeling relatively well to this acute onset. As noted he has pain and redness to the toe as well as the leg but no significant lymphadenopathy. X-ray is without evidence of osteoarthritis however there is concern and constantly a bone scan as requested. Continue antibiotic therapy this time with Zosyn and vancomycin until further data is available. Once he is improved will be following in the wound healing Center. Local wound care is with Aquacel silver will be changed daily for now. Elevate the foot rest. The patient was concerned about loss of toe. There is no sunitha necrosis being seen at this point in time and do not expect toe loss at this time. Patient's many questions are answered and await cultures at this time. I agree with evaluation, assessment and plan as dictated by nurse practitioner Mrs. Zoie Robles.
--- NOTE | 2018-09-27 00:07 | P.PN ---
Subjective Progress Note Date: 09/26/18 Principal diagnosis: Left second toe diabetic ulcer with surrounding cellulitis Patient is a 63-year-old male with a known history of hypertension, diabetes type 2 [id number], hyperlipidemia, coronary artery disease with history of CABG and stent placement, peripheral vascular disease and previous history of smoking came to ER with the complaints of swelling and redness over the left second toe and worsening pain for the last 2 days. Patient also having redness extending up to the ankle and worsening pain which made her to come to the hospital. He states that he's had a previous wound over his bottom of his left foot and it was managed by Dr. Browning. Patient states that she he recently has A1c checked was 6.1. He otherwise has been doing well. He denies any fevers or chills. Denied any chest pain or shortness of breath. X-ray of the left foot showed no convincing radiographic evidence for acute or stomatitis with particular attention to left second toe. No leukocytosis. Left lower extremities duplex scan is negative for DVT. 09/26/2018 Patient did have improvement in redness of the left foot. Patient is being continued on antibiotics in the form of vancomycin and Zosyn. Basilar surgery is following. ID is on board. Follow up wound culture reports. Otherwise denied any chest pain or shortness of breath. Leg pain improved. No nausea vomiting or abdominal pain. No fever no chills. No headache or dizziness or lightheadedness. Blood sugar is fairly controlled. Current medications reviewed. Objective - Vital Signs Vital signs: Vital Signs Temp 98.1 F 09/26/18 21:00 Pulse 72 09/26/18 21:00 Resp 18 09/26/18 21:00 BP 166/95 09/26/18 21:00 Pulse Ox 96 09/26/18 21:00 Intake & Output 09/26/18 09/26/18 09/27/18 06:59 18:59 06:59 Intake Total 3030 600 Balance 3030 600 Intake: Intake, IV Titration 1250 600 Amount Piperacillin-Tazobactam 3 50 100 .375 gm In Sodium Chloride 0.9% 100 ml @ 25 mls/hr IVPB Q8HR [facility] Rx# :[id number] Sodium Chloride 0.9% 1, 200 000 ml @ 100 mls/hr IV . Q10H [facility] Rx#:[id number] Vancomycin 1,750 mg In 1000 500 Sodium Chloride 0.9% 500 ml 500 ml @ 167 mls/hr IVPB Q12H [facility] Rx#: [id number] Oral 1780 Other: Voiding Method Toilet Toilet # Voids 2 2 - Exam PHYSICAL EXAMINATION: Patient is lying in the bed comfortably, no acute distress, awake alert and oriented.. HEENT: Normocephalic. Neck is supple. Pupils reactive. Nostrils clear. Oral cavity is moist. Ears reveal no drainage. Neck reveals no JVD, carotid bruits, or thyromegaly. CHEST EXAMINATION: Trachea is central. Symmetrical expansion. Lung lockwood clear to auscultation and percussion. CARDIAC: Normal S1, S2 with no gallops. No murmurs ABDOMEN: Soft. Bowel sounds normal. No organomegaly. No abdominal bruits. Extremities: reveal no edema. No clubbing or cyanosis Left second toe small ulceration on the medial side with redness and tenderness extending up to the dorsum of the foot improved.. No purulent drainage noted. Neurologically awake, alert, oriented x3 with well-coordinated movements. No focal deficits noted Skin: No rash or skin lesions. Psychiatric: Coperative. Nonsuicidal Musculoskeletal: No joint swelling or deformity. Normal range of motion. - Labs CBC & Chem 7: 09/24/18 20:24 09/24/18 20:24 Labs: Abnormal Lab Results - Last 24 Hours (Table) 09/26/18 09/26/18 09/26/18 Range/Units 11:17 16:37 21:11 POC Glucose (mg/dL) 137 H 104 H 104 H (75-99) mg/dL Microbiology - Last 24 Hours (Table) 09/24/18 19:50 Gram Stain - Final Toe - Left Second Wound Culture - Final 09/24/18 22:05 Blood Culture - Preliminary Blood No Growth after 24 hours Assessment and Plan Assessment: Left second toe diabetic foot infection with cellulitis extending up to ankle. Peripheral vascular disease Coronary artery disease and history of CABG and stent placement Hypertension Diabetes type 2 nausea independent Hyperlipidemia Diabetic peripheral neuropathy Chronic back pain on methadone for a long time. Previous history of smoking DVT prophylaxis Plan: Patient will be continued on broad-spectrum antibiotics in the form of vancomycin and Zosyn. Follow up wound cultures. Vascular surgery and ID is following. Continue the home medications including aspirin statins and Plavix, Coreg and lisinopril. Continue the sliding scale and diabetic medications. Follow closely and further recommendations based on the clinical course. Time with Patient: Greater than 30
[2018-09-27] MEDS: PIPERACILLIN-TAZOBACTAM 3.375 GM in SODIUM CHLORIDE 0.9% 100 ML IVPB SCH ×3 (00:40→16:40)
[2018-09-27] MEDS: HEPARIN SODIUM,PORCINE 5,000 UNIT/ML 1 ML VIAL SQ SCH ×5 (00:41→23:03)
[2018-09-27] MEDS: METHADONE 10 MG TAB PO PRN ×4 (05:18→23:03)
[2018-09-27 07:10] LABS: Glucose,Whole Blood 116 mg/dL (75-99)
[2018-09-27] MEDS: CARVEDILOL 12.5 MG TAB PO SCH ×3 (09:16→11:11)
[2018-09-27] MEDS: ATORVASTATIN 20 MG TAB PO SCH (09:16)
[2018-09-27] MEDS: CLOPIDOGREL 75 MG TAB PO SCH (09:16)
[2018-09-27] MEDS: ASPIRIN 81 MG PO SCH (09:16)
[2018-09-27] MEDS: metFORMIN 500 MG TAB PO SCH ×2 (09:16→22:03)
[2018-09-27] MEDS: LISINOPRIL 20 MG TAB PO SCH (09:16)
[2018-09-27] MEDS: GABAPENTIN 400 MG CAP PO SCH ×4 (09:16→22:03)
[2018-09-27 09:34] LABS: Anion Gap 7 mmol/L; Blood Urea Nitrogen 21 mg/dL (9-20); Carbon Dioxide 31 mmol/L (22-30); Chloride 103 mmol/L (98-107); Glucose 138 mg/dL (74-99); Potassium 4.3 mmol/L (3.5-5.1); Sodium 141 mmol/L (137-145)
[2018-09-27] MEDS: VANCOMYCIN 1,750 MG in SODIUM CHLORIDE 0.9% 500 ML 500 ML IVPB SCH ×2 (10:04→22:03)
[2018-09-27] MEDS: SODIUM CHLORIDE 0.9% 1,000 ML IV SCH ×3 (10:07→22:04)
[2018-09-27 10:55] LABS: Glucose,Whole Blood 126 mg/dL (75-99)
[2018-09-27] MEDS: MULTIVITAMINS, THERA 1 EACH TAB PO SCH (13:24)
--- NOTE | 2018-09-27 14:10 | NM ---
EXAMINATION TYPE: NM bone 3 phase DATE OF EXAM: 09/27/2018 COMPARISON: Prior 3 phase bone scan 02/26/2016, plain film 09/24/2017 HISTORY: Second digit erythema and swelling Triple phase bone scintigraphy was performed following the injection of 26.0 mCi Tc 99m MDP. Immedia te images and 6.25 hours post injection images acquired. FINDINGS: There is mild increased flow, blood pool activity is increased at the level of the second digit of th e left foot. More focal uptake is present at the second digit of the left foot on delayed images, upt marilynn also noted the distal first digit on delayed images. Mild uptake also noted at the fifth digit of the right foot on delayed imaging. IMPRESSION: Findings consistent with osteomyelitis second digit left foot.
[2018-09-27 17:04] LABS: Glucose,Whole Blood 125 mg/dL (75-99)
[2018-09-27 18:19] LABS: Hemoglobin A1C 7.4 % (4.0-6.0)
[2018-09-27 19:48] LABS: Glucose,Whole Blood 145 mg/dL (75-99)
[2018-09-27] MEDS: IBUPROFEN 400 MG TAB PO PRN (23:41)
[2018-09-28] MEDS: PIPERACILLIN-TAZOBACTAM 3.375 GM in SODIUM CHLORIDE 0.9% 100 ML IVPB SCH ×2 (00:31→08:30)
[2018-09-28 06:52] LABS: Glucose,Whole Blood 88 mg/dL (75-99)
[2018-09-28] MEDS: METHADONE 10 MG TAB PO PRN ×2 (08:24→14:22)
[2018-09-28] MEDS: ASPIRIN 81 MG PO SCH (08:27)
[2018-09-28] MEDS: GABAPENTIN 400 MG CAP PO SCH ×2 (08:27→14:22)
[2018-09-28] MEDS: ATORVASTATIN 20 MG TAB PO SCH (08:27)
[2018-09-28] MEDS: CARVEDILOL 12.5 MG TAB PO SCH (08:27)
[2018-09-28] MEDS: HEPARIN SODIUM,PORCINE 5,000 UNIT/ML 1 ML VIAL SQ SCH ×2 (08:29→14:16)
[2018-09-28] MEDS: CLOPIDOGREL 75 MG TAB PO SCH (08:31)
[2018-09-28] MEDS: metFORMIN 500 MG TAB PO SCH (08:33)
[2018-09-28] MEDS: LISINOPRIL 20 MG TAB PO SCH (08:33)
[2018-09-28] MEDS: VANCOMYCIN 1,750 MG in SODIUM CHLORIDE 0.9% 500 ML 500 ML IVPB SCH (10:29)
[2018-09-28] MEDS: SODIUM CHLORIDE 0.9% 1,000 ML IV SCH (10:30)
[2018-09-28 11:43] LABS: Glucose,Whole Blood 124 mg/dL (75-99)
[2018-09-28] MEDS ORDERED: LIDOCAINE 1% INJ 10MG/ML (20 ML MDV) ONE (13:52)
[2018-09-28] MEDS ORDERED: LIDOCAINE 1% INJ 10MG/ML (20 ML MDV) SQ ONE (14:01)
[2018-09-28] MEDS: MULTIVITAMINS, THERA 1 EACH TAB PO SCH (14:23)
[2018-09-28 16:21] VITALS: BP 168/92; PULSE 63; RESP 14; TEMP 98.9
--- NOTE | 2018-10-01 14:21 | IR ---
PICC LINE PLACEMENT: HISTORY: Infection requiring long-term antibiotic therapy PROCEDURE: Ultrasound and fluoroscopic guidance of PICC line placement. COMPLICATIONS: None ANESTHESIA: 1. 1% Lidocaine locally. FINDINGS/TECHNIQUE: The procedure was explained to the patient. The risks, complications, benefits and alternatives were discussed and any questions were answered. Informed consent was obtained. The patient was placed supine on the fluoroscopic table and prepped and draped in the usual sterile fash ion. Utilizing a 21 gauge needle and sonographic and fluoroscopic guidance, access in the right bas ilic vein was achieved and there is placement of a 0.018 guidewire. The vein is patent. A 4-F sheat h was placed over the guidewire. The guidewire and dilator were removed and a 4-F. PICC line was ray shirley through the sheath with the tip at the level of the SVC. The sheath was removed, the catheter wa s flushed and sutured into position. The patient was stable throughout the procedure and remained st able upon discharge from the Department of Radiology. The vein puncture was patent under ultrasound. A nathan scale image was obtained to document patency of the vein punctured. All elements of the maximal barrier technique were utilized. FLUOROSCOPY TIME: 0.1 minute, one image submitted IMPRESSION: Successful PICC line placement under ultrasound and fluoroscopic guidance.
--- NOTE | 2018-10-01 14:58 | CDI ---
Documentation Clarification Form Date: 10/01/2018 From: Ronel Alfredo Hayley García, [employer] Hours-8:30 am & 5 pm M-F Admit Date: 09/28/2018 9:36:00 AM Patient Name: Buddy Campbell Visit Number: [id number] Discharge Date: 09/28/2018 4:45:00 PM ATTENTION: The Clinical Documentation Specialists (CDI) and [facility] Coding Staff appreciate your assistance in clarifying documentation. Please respond to the clarification below the line at the bottom and electronically sign. The CDI & [facility] Coding staff will review the response and follow-up if needed. Please note: Queries are made part of the Legal Health Record. If you have any questions, please contact the author of this message via ITS. Dr. Demond Forte Osteomyelitis has been documented in the 09/27 BONE SCAN: Findings consistent with osteomyelitis second digits left foot. History/Risk Factors: DM, cellulitis, ingrown nail Clinical Indicators: Treatment: IV Vancomycin, IV Zosyn, IV Rocephin In your professional opinion, left 2nd digit of foot, please specify the following: Acuity: Acute Chronic Subacute Unable to Determine Associated condition (if applicable): Diabetic Major osseous defect (specify site) Other (please specify): Acute OM associated with DM MTDD
--- NOTE | 2018-10-01 15:05 | CDI ---
Documentation Clarification Form Date: 10/01/18 From: Ronel Alfredo Hayley García, Regional Controller Hours-8:30 am & 5 pm Kenna Admit Date: 09/28/2018 9:36:00 AM Patient Name: Buddy Campbell Visit Number: [id number] Discharge Date: 09/28/2018 4:45:00 PM ATTENTION: The Clinical Documentation Specialists (CDI) and [facility] Coding Staff appreciate your assistance in clarifying documentation. Please respond to the clarification below the line at the bottom and electronically sign. The CDI & [facility] Coding staff will review the response and follow-up if needed. Please note: Queries are made part of the Legal Health Record. If you have any questions, please contact the author of this message via ITS. Dr. Fred Browning Per your operative note, a debridement was performed on 09/26. History/Risk Factors: DM w left toe ulcer & cellulitis Treatment: IV antibiotics and debridement In order to capture the severity of condition and code the appropriate procedure; could you please document the following: Excisional debridement (the removal of necrotic, devitalized tissue or slough by means of cutting away of tissue) Non-excisional debridement (the removal of necrotic, devitalized tissue or slough by means of flushing, brushing, or washing. (Irrigation) Other; please specify Unable to determine __I termed this and open debridement with simply removal by pulling and brushing away nonviable skin. I documented it as such. MTDD
--- NOTE | 2018-10-09 11:46 | P.PN ---
Subjective Progress Note Date: 09/27/18 Principal diagnosis: Left second toe diabetic ulcer with surrounding cellulitis Patient is a 63-year-old male with a known history of hypertension, diabetes type 2 [id number]-[id number], hyperlipidemia, coronary artery disease with history of CABG and stent placement, peripheral vascular disease and previous history of smoking came to ER with the complaints of swelling and redness over the left second toe and worsening pain for the last 2 days. Patient also having redness extending up to the ankle and worsening pain which made her to come to the hospital. He states that he's had a previous wound over his bottom of his left foot and it was managed by Dr. Browning. Patient states that she he recently has A1c checked was 6.1. He otherwise has been doing well. He denies any fevers or chills. Denied any chest pain or shortness of breath. X-ray of the left foot showed no convincing radiographic evidence for acute or stomatitis with particular attention to left second toe. No leukocytosis. Left lower extremities duplex scan is negative for DVT. 09/26/2018 Patient did have improvement in redness of the left foot. Patient is being continued on antibiotics in the form of vancomycin and Zosyn. Basilar surgery is following. ID is on board. Follow up wound culture reports. Otherwise denied any chest pain or shortness of breath. Leg pain improved. No nausea vomiting or abdominal pain. No fever no chills. No headache or dizziness or lightheadedness. Blood sugar is fairly controlled. 09/27/2018 Left foot redness and swelling is much improved. Wound dressing is being done. Continued on antibiotics in the form of vancomycin and Zosyn. ID is following. Patient is scheduled for bone scan today. Further recommendations based on the clinical course and final ID recommendations depending on bone scan. Blood sugar is fairly controlled. Otherwise no complaints of chest pain or shortness of breath. No nausea vomiting or abdominal pain. No diarrhea or dysuria. No fever no chills. Current medications reviewed. Objective - Vital Signs Vital signs: Vital Signs Temp 97.9 F 09/27/18 20:36 Pulse 50 L 09/27/18 20:36 Resp 18 09/27/18 20:36 BP 157/83 09/27/18 20:36 Pulse Ox 94 L 09/27/18 20:36 Intake & Output 09/27/18 09/27/18 09/28/18 06:59 18:59 06:59 Intake Total 1999 Balance 1999 Weight 102.058 kg Intake: Intake, IV Titration 1500 Amount Piperacillin-Tazobactam 3 100 .375 gm In Sodium Chloride 0.9% 100 ml @ 25 mls/hr IVPB Q8HR [facility] Rx# :[id number] Sodium Chloride 0.9% 1, 900 000 ml @ 100 mls/hr IV . Q10H [facility] Rx#:[id number] Vancomycin 1,750 mg In 500 Sodium Chloride 0.9% 500 ml 500 ml @ 167 mls/hr IVPB Q12H [facility] Rx#: [id number] Oral 500 Other: Voiding Method Toilet # Voids 2 3 1 - Exam PHYSICAL EXAMINATION: Patient is lying in the bed comfortably, no acute distress, awake alert and oriented.. HEENT: Normocephalic. Neck is supple. Pupils reactive. Nostrils clear. Oral cavity is moist. Ears reveal no drainage. Neck reveals no JVD, carotid bruits, or thyromegaly. CHEST EXAMINATION: Trachea is central. Symmetrical expansion. Lung lockwood clear to auscultation and percussion. CARDIAC: Normal S1, S2 with no gallops. No murmurs ABDOMEN: Soft. Bowel sounds normal. No organomegaly. No abdominal bruits. Extremities: reveal no edema. No clubbing or cyanosis Left second toe small ulceration on the medial side with redness and tenderness extending up to the dorsum of the foot improved.. No purulent drainage noted. Neurologically awake, alert, oriented x3 with well-coordinated movements. No focal deficits noted Skin: No rash or skin lesions. Psychiatric: Coperative. Nonsuicidal Musculoskeletal: No joint swelling or deformity. Normal range of motion. - Labs CBC & Chem 7: 09/24/18 20:24 09/27/18 09:00 Labs: Abnormal Lab Results - Last 24 Hours (Table) 09/26/18 09/27/18 09/27/18 Range/Units 21:11 07:07 08:57 Carbon Dioxide (22-30) mmol/L BUN (9-20) mg/dL Glucose (74-99) mg/dL POC Glucose (mg/dL) 104 H 116 H (75-99) mg/dL Hemoglobin A1c 7.4 H (4.0-6.0) % 09/27/18 09/27/18 09/27/18 Range/Units 09:00 10:53 17:03 Carbon Dioxide 31 H (22-30) mmol/L BUN 21 H (9-20) mg/dL Glucose 138 H (74-99) mg/dL POC Glucose (mg/dL) 126 H 125 H (75-99) mg/dL Hemoglobin A1c (4.0-6.0) % 09/27/18 Range/Units 19:46 Carbon Dioxide (22-30) mmol/L BUN (9-20) mg/dL Glucose (74-99) mg/dL POC Glucose (mg/dL) 145 H (75-99) mg/dL Hemoglobin A1c (4.0-6.0) % Microbiology - Last 24 Hours (Table) 09/24/18 22:05 Blood Culture - Preliminary Blood No Growth after 48 hours 09/24/18 19:50 Gram Stain - Final Toe - Left Second Wound Culture - Final Assessment and Plan Assessment: Left second toe diabetic foot infection with cellulitis extending up to ankle. Rule out osteomyelitis.. Peripheral vascular disease Coronary artery disease and history of CABG and stent placement Hypertension Diabetes type 2 nausea independent Hyperlipidemia Diabetic peripheral neuropathy Chronic back pain on methadone for a long time. Previous history of smoking DVT prophylaxis Plan: Patient will be continued on broad-spectrum antibiotics in the form of vancomycin and Zosyn. Follow up wound cultures. Vascular surgery and ID is following. Continue the home medications including aspirin statins and Plavix, Coreg and lisinopril. Continue the sliding scale and diabetic medications. Follow closely and further recommendations based on the clinical course. Time with Patient: Greater than 30
--- NOTE | 2018-10-09 11:49 | P.DS ---
Providers Date of admission: 09/28/18 09:36 Expected date of discharge: 09/28/18 Attending physician: Olga Mansfield Consults: 09/24/18 21:37 Consult Physician Stat Consulting Provider: Fred Browning Consult Reason/Comments: L second toe infection Do you want consulting provider notified?: Yes, Notify in am 09/25/18 17:12 Consult Physician Routine Consulting Provider: Karan Cohen Consult Reason/Comments: Infected left second toe. Antibiotic management Do you want consulting provider notified?: Yes Primary care physician: Justin Mckinley [facility] Course: Discharge diagnosis Left second toe diabetic foot infection with cellulitis extending up to ankle and acute second toe osteomyelitis as per bone scan.. Peripheral vascular disease Coronary artery disease and history of CABG and stent placement Hypertension Diabetes type 2 nausea independent Hyperlipidemia Diabetic peripheral neuropathy Chronic back pain on methadone for a long time. Previous history of smoking DVT prophylaxis Hospital course Patient is a 63-year-old male with a known history of hypertension, diabetes type 2 cok-kgomzwm-avbusthes, hyperlipidemia, coronary artery disease with history of CABG and stent placement, peripheral vascular disease and previous history of smoking came to ER with the complaints of swelling and redness over the left second toe and worsening pain for the last 2 days. Patient also having redness extending up to the ankle and worsening pain which made her to come to the hospital. He states that he's had a previous wound over his bottom of his left foot and it was managed by Dr. Browning. Patient states that she he recently has A1c checked was 6.1. He otherwise has been doing well. He denies any fevers or chills. Denied any chest pain or shortness of breath. X-ray of the left foot showed no convincing radiographic evidence for acute or stomatitis with particular attention to left second toe. No leukocytosis. Left lower extremities duplex scan is negative for DVT. 09/26/2018 Patient did have improvement in redness of the left foot. Patient is being continued on antibiotics in the form of vancomycin and Zosyn. Basilar surgery is following. ID is on board. Follow up wound culture reports. Otherwise denied any chest pain or shortness of breath. Leg pain improved. No nausea vomiting or abdominal pain. No fever no chills. No headache or dizziness or lightheadedness. Blood sugar is fairly controlled. 09/27/2018 Left foot redness and swelling is much improved. Wound dressing is being done. Continued on antibiotics in the form of vancomycin and Zosyn. ID is following. Patient is scheduled for bone scan today. Further recommendations based on the clinical course and final ID recommendations depending on bone scan. Blood sugar is fairly controlled. Otherwise no complaints of chest pain or shortness of breath. No nausea vomiting or abdominal pain. No diarrhea or dysuria. No fever no chills. 09/28/2018 Patient denied any complaints of left foot pain. Swelling or redness is much improved now. Bone scan showed findings consistent with osteomyelitis second toe left foot. Patient had PICC line placed and antibiotics will be continued in the form of ceftriaxone for 6 weeks as per ID recommendations. Social work is pending for home antibiotics. Otherwise patient is symptomatic currently. No fever no chills. No chest pain or shortness of breath. Patient is stable to be discharged home and follow with ID clinic and vascular surgery clinic as well as primary care physician. PHYSICAL EXAMINATION: Patient is lying in the bed comfortably, no acute distress, awake alert and oriented.. HEENT: Normocephalic. Neck is supple. Pupils reactive. Nostrils clear. Oral cavity is moist. Ears reveal no drainage. Neck reveals no JVD, carotid bruits, or thyromegaly. CHEST EXAMINATION: Trachea is central. Symmetrical expansion. Lung lockwood clear to auscultation and percussion. CARDIAC: Normal S1, S2 with no gallops. No murmurs ABDOMEN: Soft. Bowel sounds normal. No organomegaly. No abdominal bruits. Extremities: reveal no edema. No clubbing or cyanosis Left second toe small ulceration on the medial side with redness and tenderness extending up to the dorsum of the foot improved.. No purulent drainage noted. Neurologically awake, alert, oriented x3 with well-coordinated movements. No focal deficits noted Skin: No rash or skin lesions. Psychiatric: Coperative. Nonsuicidal Musculoskeletal: No joint swelling or deformity. Normal range of motion. Discharge vitals reviewed. Total time taken greater than 35 minutes including 18 minutes for counseling and coordination of care.n Patient Condition at Discharge: Good Plan - Discharge Summary New Discharge Prescriptions: New cefTRIAXone [Rocephin] 2 gm IVPB Q24H #42 vial Continue Methadone HCl [Dolophine HCl] 20 mg PO Q6H PRN PRN Reason: Pain Enalapril [Vasotec] 20 mg PO DAILY Aspirin [Adult Low Dose Aspirin EC] 81 mg PO DAILY Clopidogrel [Plavix] 75 mg PO DAILY Gabapentin 800 mg PO QID Carvedilol [Coreg] 12.5 mg PO BID Simvastatin 40 mg PO DAILY metFORMIN HCL 1,000 mg PO BID Discharge Medication List Aspirin [Adult Low Dose Aspirin EC] 81 mg PO DAILY 02/24/16 [History] Clopidogrel [Plavix] 75 mg PO DAILY 02/24/16 [History] Enalapril [Vasotec] 20 mg PO DAILY 02/24/16 [History] Methadone HCl [Dolophine HCl] 20 mg PO Q6H PRN 02/24/16 [History] Carvedilol [Coreg] 12.5 mg PO BID 09/24/18 [History] Gabapentin 800 mg PO QID 09/24/18 [History] Simvastatin 40 mg PO DAILY 09/24/18 [History] metFORMIN HCL 1,000 mg PO BID 09/24/18 [History] cefTRIAXone [Rocephin] 2 gm IVPB Q24H #42 vial 09/28/18 [Rx] Follow up Appointment(s)/Referral(s): Justin Mckinley DO [Primary Care Provider] - 1-[facility] days [facility]FF[facility] - 10/10/18 (please follow up with Dr. Browning in the wound care center upon discharge) Patient Instructions/Handouts: Ceftriaxone (By injection), Osteomyelitis (GEN), Peripherally Inserted Central Catheters and Midline Catheters (GEN) Activity/Diet/Wound Care/Special Instructions: Local wound care to left second toe: Continue with absorptive silver dressing change daily. Elevate lower extremities when sitting/laying down. Follow up with Dr. Browning in wound care center upon discharge. pt is set up at [facility] at 10 am for the weekend have the pt go to the main office for infusion - he will be getting his infusion in the ER in the treatment room. [facility] procedures - -or Discharge Disposition: HOME SELF-CARE
== END 2018-09-28 16:45 | disposition home or self-care (01) | DRG 982 ==
LOC: EC 18:47 → 3NMEDONC 21:31 → OBSVTOIN 09-28 09:36
PROVIDERS: ADMIT Hospitalist; ATTEND Hospitalist
PROC: 0JDR0ZZ Extraction of Left Foot Subcutaneous Tissue and Fascia, Open Approach (ICD-10-PCS; 2018-09-26)
PROC: 02HV33Z Insertion of Infusion Device into Superior Vena Cava, Percutaneous Approach (ICD-10-PCS; principal; 2018-09-28 14:00)
DX: E11.69 Type 2 diabetes mellitus with other specified complication (principal); L03.116 Cellulitis of left lower limb; M86.172 Other acute osteomyelitis, left ankle and foot; E11.621 Type 2 diabetes mellitus with foot ulcer; L97.522 Non-pressure chronic ulcer of other part of left foot with fat layer exposed; E11.42 Type 2 diabetes mellitus with diabetic polyneuropathy; E11.51 Type 2 diabetes mellitus with diabetic peripheral angiopathy without gangrene; L60.0 Ingrowing nail; I10 Essential (primary) hypertension; I25.10 Atherosclerotic heart disease of native coronary artery without angina pectoris; E78.5 Hyperlipidemia, unspecified; G89.29 Other chronic pain; M54.9 Dorsalgia, unspecified; Z79.82 Long term (current) use of aspirin; Z79.02 Long term (current) use of antithrombotics/antiplatelets; Z79.84 Long term (current) use of oral hypoglycemic drugs; Z79.899 Other long term (current) drug therapy; Z87.891 Personal history of nicotine dependence; Z95.5 Presence of coronary angioplasty implant and graft; Z95.1 Presence of aortocoronary bypass graft; Z95.828 Presence of other vascular implants and grafts; Z98.42 Cataract extraction status, left eye; Z98.41 Cataract extraction status, right eye; Z88.8 Allergy status to other drugs, medicaments and biological substances; Z82.49 Family history of ischemic heart disease and other diseases of the circulatory system; Z81.8 Family history of other mental and behavioral disorders
CPT/HCPCS: 36415; 36573; 78315; 80048; 80053; 80202; 83036; 83605; 85025; 87040; 87070; 87205; 96361; 96365; 96375; 99285

== ENCOUNTER 2021-07-16 04:29 | Inpatient (IN) | payer MEDICARE, OTHER ==
--- NOTE | 2021-07-16 05:25 | ED ---
Recheck HPI - General Chief Complaint: Chest Pain Stated Complaint: NStemi, Anxiety Time Seen by Provider: 07/16/21 04:33 Source: EMS, RN notes reviewed, old records reviewed Mode of arrival: EMS Limitations: no limitations - History of Present Illness Initial Comments: This is a 66-year-old male to the emergency department today. Patient presents today for evaluation regards to significant weakness with chest pain was found to have as well as elevated troponin. Patient has a non-ST elevated PR is accepted in transfer from outside facility. Patient arrival to our hospitalist feeling improved. Otherwise no complaints no other fevers nausea vomiting or weakness MD Complaint: abnormal lab (Elevated troponin) -: hour(s) Returns Today for: persistent/worsening pain related to initial visit (Some back pain) Symptoms Since Prior Visit: worsening pain Context: called for abnormal lab result Associated Symptoms: chest pain, shortness of breath, malaise, nausea Treatments Prior to Arrival: other (none) - Related Data Home Medications Medication Instructions Recorded Confirmed Aspirin [Adult Low Dose Aspirin EC] 81 mg PO DAILY 02/24/16 09/24/18 Clopidogrel [Plavix] 75 mg PO DAILY 02/24/16 09/24/18 Enalapril [Vasotec] 20 mg PO DAILY 02/24/16 09/24/18 Methadone HCl [Dolophine HCl] 20 mg PO Q6H PRN 02/24/16 09/24/18 Carvedilol [Coreg] 12.5 mg PO BID 09/24/18 09/24/18 Gabapentin 800 mg PO QID 09/24/18 09/24/18 Simvastatin 40 mg PO DAILY 09/24/18 09/24/18 metFORMIN HCL [Glucophage] 1,000 mg PO BID 09/24/18 09/24/18 Previous Rx's Medication Instructions Recorded cefTRIAXone [Rocephin] 2 gm IVPB Q24H #42 vial 09/28/18 Allergies Allergy/AdvReac Type Severity Reaction Status Date / Time nitroglycerin AdvReac Unknown Verified 09/24/18 20:56 Review of Systems ROS Statement: Those systems with pertinent positive or pertinent negative responses have been documented in the HPI. ROS Other: All systems not noted in ROS Statement are negative. Past Medical History Past Medical History: Coronary Artery Disease (CAD), Diabetes Mellitus, Hyperlipidemia, Hypertension, Vascular Disorder History of Any Multi-Drug Resistant Organisms: None Reported Past Surgical History: Coronary Bypass/CABG, Heart Catheterization, Heart Catheterization With Stent, Orthopedic Surgery Additional Past Surgical History / Comment(s): left wrist subluxed tendon repair, bilateral cataract removal, fem pop bypass 2013 Past Anesthesia/Blood Transfusion Reactions: No Reported Reaction Date of Last Stent Placement:: 1999 Past Psychological History: No Psychological Hx Reported Past Alcohol Use History: None Reported Past Drug Use History: None Reported - Past Family History Mother Family Medical History: No Reported History Additional Family Medical History / Comment(s): at age 96 Father Family Medical History: Coronary Artery Disease (CAD) Additional Family Medical History / Comment(s): at age 54. General Exam Limitations: no limitations General appearance: alert, in no apparent distress, anxious Head exam: Present: atraumatic, normocephalic, normal inspection Eye exam: Present: normal appearance, PERRL, EOMI. Absent: scleral icterus, conjunctival injection, periorbital swelling ENT exam: Present: normal exam, mucous membranes moist Neck exam: Present: normal inspection. Absent: tenderness, meningismus, lymphadenopathy Respiratory exam: Present: normal lung sounds bilaterally. Absent: respiratory distress, wheezes, rales, rhonchi, stridor Cardiovascular Exam: Present: regular rate, normal rhythm, normal heart sounds. Absent: systolic murmur, diastolic murmur, rubs, gallop, clicks GI/Abdominal exam: Present: soft, normal bowel sounds. Absent: distended, tenderness, guarding, rebound, rigid Extremities exam: Present: normal inspection, full ROM, normal capillary refill. Absent: tenderness, pedal edema, joint swelling, calf tenderness Back exam: Present: normal inspection Neurological exam: Present: alert, oriented X3, CN II-XII intact Psychiatric exam: Present: normal affect, normal mood Skin exam: Present: warm, dry, intact, normal color. Absent: rash Course Vital Signs 07/16/21 04:49 Temperature 98.3 F Pulse Rate 87 Respiratory 10 L Rate Blood Pressure 130/82 O2 Sat by Pulse 95 Oximetry - Reevaluation(s) Reevaluation #1: 07/16/21 05:38 Medical record is reviewed Reevaluation #2: 07/16/21 05:38 Patient's transfer paperwork is also been reviewed Reevaluation #3: 07/16/21 05:38 Patient is informed of results and questions have been answered - Consultations Consultation #1: Spoke with Dr. Castillo who agrees to admit this patient Disposition Clinical Impression: Acute non-ST elevation myocardial infarction (NSTEMI) Disposition: ADMITTED IP TO THIS HOSP Condition: Serious Is patient prescribed a controlled substance at d/c from ED?: No Referrals: Justin Mckinley, [Primary Care Provider] - 1-2 days
[2021-07-16] MEDS ORDERED: NALOXONE 0.4 MG/ML 1 ML VIAL IV PRN (05:34)
[2021-07-16] MEDS ORDERED: PROCHLORPERAZINE 5 MG TAB PO PRN (05:34)
[2021-07-16] MEDS ORDERED: HEPARIN SODIUM 1,000 UN/ML (10ML VL) IV PRN (05:34)
[2021-07-16] MEDS ORDERED: HEPARIN SOD,PORK IN 0.45% NACL 25,000 UNIT in 0.45% NACL 1 250ML.BAG IV SCH (05:45)
[2021-07-16] MEDS: SODIUM CHLORIDE 0.9% 1,000 ML IV SCH (08:02)
[2021-07-16] MEDS ORDERED: ATORVASTATIN 20 MG TAB PO SCH (09:00)
[2021-07-16] MEDS ORDERED: lisinopriL 20 MG TAB PO SCH (09:00)
--- NOTE | 2021-07-16 09:06 | P.CRDCN ---
History of Present Illness Consult date: 07/16/21 Consult reason: non-Q-wave RI Chief complaint: An episode of anxiety History of present illness: 66-year-old gentleman with history of coronary artery disease status post redo CABG in 2011 at [facility] in [place] hypertension diabetes and dyslipidemia presented to hospital with symptoms of sustained palpitations not feeling well anxiety and some difficulty in breathing he was found to be in atrial fibrillation and subsequently converted to sinus rhythm. He had elevated troponin and had and was transferred to the [facility]. He has seen a sales center associate in [place] and most recently set up an appointment to see a sales center associate in [place]. He could not be transferred to either [place] artery [place] probably because of the bed situation comes to our hospital At the time of my evaluation this morning patient is sleeping soundly he does not have chest pain difficulty in breathing but no longer has any anxiety on the palpitations his monitor shows that he is in normal sinus rhythm. Troponin is more than 8. His creatinine was normal as was the hemoglobin at the other hospital His EKG showed normal sinus rhythm intraventricular conduction delay with nonspecific ST-T wave changes There is no history of leg edema shortness of breath PND or orthopnea. There is no history of congestive heart failure. There is no prior history of atrial fibrillation. Patient is currently on intravenous heparin. I'm going to get hold of her cath report that. Was done in 2013. I will obtain a 2-D echo to assess LV function. I advised the patient to undergo cardiac catheterization for further evaluation. He also carries a history of peripheral arterial disease and thinks that he has had stenting done. He had an ulcer involving the left foot in the past. His femoral pulses are palpable distal pulses are palpable but diminished Review of Systems Constitutional: Denies chills. Denies fever. Eyes: Denies blurred vision. Denies pain. Ears, nose, mouth and throat: Denies headache. Denies sore throat. Cardiovascular: Denies chest pain. Significant for shortness of breath and palpitations Respiratory: Denies cough. Gastrointestinal: Denies abdominal pain. Denies diarrhea. Denies nausea. Denies vomiting. Musculoskeletal: Denies myalgias. Integumentary: Denies pruritus. Denies rash. Neurological: Denies numbness. Denies weakness. Psychiatric: Denies anxiety. Denies depression. Endocrine: Denies fatigue. Denies weight change. Genitourinary: Denies burning, hematuria, frequency of urination. Hematological: No anemia or excess bleeding. Past Medical History Past Medical History: Coronary Artery Disease (CAD), Diabetes Mellitus, Hyperlipidemia, Hypertension, Vascular Disorder History of Any Multi-Drug Resistant Organisms: None Reported Past Surgical History: Coronary Bypass/CABG, Heart Catheterization, Heart Catheterization With Stent, Orthopedic Surgery Additional Past Surgical History / Comment(s): left wrist subluxed tendon repair, bilateral cataract removal, fem pop bypass 2012 Past Anesthesia/Blood Transfusion Reactions: No Reported Reaction Date of Last Stent Placement:: 1999 Past Psychological History: No Psychological Hx Reported Past Alcohol Use History: None Reported Past Drug Use History: None Reported - Past Family History Mother Family Medical History: No Reported History Additional Family Medical History / Comment(s): at age 96 Father Family Medical History: Coronary Artery Disease (CAD) Additional Family Medical History / Comment(s): at age 54. Medications and Allergies Home Medications Medication Instructions Recorded Confirmed Type Aspirin [Adult Low Dose Aspirin EC] 81 mg PO DAILY 02/24/16 09/24/18 History Clopidogrel [Plavix] 75 mg PO DAILY 02/24/16 09/24/18 History Enalapril [Vasotec] 20 mg PO DAILY 02/24/16 09/24/18 History Methadone HCl [Dolophine HCl] 20 mg PO Q6H PRN 02/24/16 09/24/18 History Carvedilol [Coreg] 12.5 mg PO BID 09/24/18 09/24/18 History Gabapentin 800 mg PO QID 09/24/18 09/24/18 History Simvastatin 40 mg PO DAILY 09/24/18 09/24/18 History metFORMIN HCL [Glucophage] 1,000 mg PO BID 09/24/18 09/24/18 History cefTRIAXone [Rocephin] 2 gm IVPB Q24H #42 vial 09/28/18 Rx Allergies Allergy/AdvReac Type Severity Reaction Status Date / Time nitroglycerin AdvReac Unknown Verified 09/24/18 20:56 Physical Exam Vitals: Vital Signs Temp Pulse Resp BP Pulse Ox 07/16/21 07:58 76 18 124/101 100 07/16/21 07:00 57 L 12 102/78 07/16/21 04:49 98.3 F 87 10 L 130/82 95 Intake and Output 07/15/21 07/16/21 07/16/21 22:59 06:59 14:59 Other: Weight 103.147 kg General: The patient is awake and alert, in no distress, and does not appear acutely ill. Skin: Skin is warm and dry and no rashes or lesions are noted. Eye: Pupils are equal, round and reactive to light, extra-ocular movements are intact; there is normal conjunctiva bilaterally. Ears, nose, mouth and throat: There are moist mucous membranes and no oral lesions. Neck: The neck is supple, there is no tenderness or JVD. Cardiovascular: There is a regular rate and rhythm. No murmur, rub or gallop is appreciated. Respiratory: Lungs are clear to auscultation, respirations are non-labored, breath sounds are equal. Gastrointestinal: Soft, non-distended, non-tender abdomen without masses or organomegaly noted. There is no rebound or guarding present. Bowel sounds are unremarkable. Back: There is no tenderness to palpation in the midline. There is no obvious deformity. Musculoskeletal: Normal ROM, no tenderness, There is no pedal edema. There is no calf tenderness or swelling. Extremities: No edema. Vascular: Femoral pulse is normal. Posterior tibial pulses are normal .Dorsalis pedis is palpable. Neurological: CN II-XII intact. There are no obvious motor or sensory deficits. Speech is normal. Psychiatric: Cooperative, appropriate mood & affect, normal judgment. Results - Results Results: Troponin is elevated at 8 Hemoglobin is normal Creatinine is 0.9 Platelet count is normal I reviewed rest of the labs Cardiac Enzymes 07/16/21 Range/Units 06:54 Troponin I 8.210 H* (0.000-0.034) ng/mL Coagulation 07/16/21 Range/Units 06:54 APTT 34.6 H (22.0-30.0) sec Current Medications Generic Name Dose Route Start Last Admin Trade Name Freq PRN Reason Stop Dose Admin Atorvastatin Calcium 20 mg 07/16/21 09:00 Atorvastatin 20 Mg Tab PO DAILY DREA Carvedilol 12.5 mg 07/16/21 17:30 Carvedilol 12.5 Mg Tab PO BID-W/MEALS DREA Heparin Sodium (Porcine) 0 unit 07/16/21 05:34 Heparin Sodium 1,000 Un/Ml (10ml Vl) IV PER PROTOCOL PRN Low PTT Protocol Heparin Sodium/Sodium Chloride 250 mls @ 10.016 mls/hr 07/16/21 05:45 07/16/21 05:46 25,000 unit/ Sodium Chloride IV 9.71 units/kg/hr .Q24H DREA 10.016 mls/hr Administration Protocol 9.71 UNITS/KG/HR Sodium Chloride 1,000 mls @ 20 mls/hr 07/16/21 05:45 07/16/21 08:02 Saline 0.9% IV 20 mls/hr .Q24H DREA Administration Lisinopril 40 mg 07/16/21 09:00 Lisinopril 20 Mg Tab PO DAILY DREA Lorazepam 0.5 mg 07/16/21 05:34 Lorazepam 2 Mg/Ml Inj IV Q6HR PRN Anxiety Morphine Sulfate 4 mg 07/16/21 05:34 Morphine Sulfate 4 Mg/Ml Syringe IV Q4HR PRN Severe Pain Naloxone HCl 0.2 mg 07/16/21 05:34 Naloxone 0.4 Mg/Ml 1 Ml Vial IV Q2M PRN Opioid Reversal Prochlorperazine Maleate 5 mg 07/16/21 05:34 Prochlorperazine 5 Mg Tab PO Q8HR PRN Nausea And Vomiting Intake and Output 07/15/21 07/16/21 07/16/21 22:59 06:59 14:59 Other: Weight 103.147 kg EKG Interpretations (text) Normal sinus rhythm and intraventricular conduction delay and nonspecific ST-T wave changes Assessment and Plan Assessment: Acute non-ST segment elevation RI Paroxysmal atrial fibrillation Hypertension Diabetes Dyslipidemia Plan: I will continue the patient on IV heparin aspirin beta blockers Obtained the cath report Perform cardiac catheterization on him
[2021-07-16] MEDS: MORPHINE SULFATE 4 MG/ML SYRINGE IV PRN ×2 (09:10→21:09)
[2021-07-16] MEDS ORDERED: CLOPIDOGREL 75 MG TAB PO SCH (09:45)
[2021-07-16] MEDS ORDERED: ASPIRIN 325 MG TAB PO STA (10:21)
[2021-07-16] MEDS ORDERED: ATORVASTATIN 80 MG TAB PO STA (10:24)
[2021-07-16] MEDS: SODIUM CHLORIDE 0.9% 1,000 ML in EMPTY BAG 1 BAG IV SCH ×2 (10:30→18:47)
[2021-07-16 10:35] LABS: Glucose,Whole Blood 117 mg/dL (75-99)
[2021-07-16] MEDS ORDERED: IV FLUID CONTINUATION 1,000 ML IV ONE (10:55)
[2021-07-16] MEDS ORDERED: fentaNYL (PF) 50 MCG/ML 2 ML AMP ONE (11:06)
[2021-07-16] MEDS ORDERED: HEPARIN SODIUM 1,000 UN/ML (10ML VL) ONE (11:06)
[2021-07-16] MEDS ORDERED: MIDAZOLAM 2 MG/2 ML VIAL IV ONE (11:20)
[2021-07-16] MEDS: fentaNYL (PF) 50 MCG/ML 2 ML AMP IV ONE ×2 (11:20→11:28)
[2021-07-16] MEDS ORDERED: VERAPAMIL 2.5 MG/ML 4 ML VIAL IV ONE (11:20)
[2021-07-16] MEDS ORDERED: LIDOCAINE 1% INJ 10MG/ML (20 ML MDV) SQ ONE ×2 (11:20→11:22)
--- NOTE | 2021-07-16 11:51 | ECHOF ---
Referral Reason:nstemi MEASUREMENTS -------- HEIGHT: 190.5 cm WEIGHT: 103.0 kg BP: 124/101 RVIDd: 4.1 cm (< 3.3) IVSd: 1.7 cm (0.6 - 1.1) LVIDd: 6.2 cm (3.9 - 5.3) LVPWd: 1.4 cm (0.6 - 1.1) IVSs: 1.6 cm LVIDs: 5.6 cm LVPWs: 1.7 cm LAESV Index (A-L): 52.92 ml/m Ao Diam: 2.8 cm (2.0 - 3.7) AV Cusp: 2.1 cm (1.5 - 2.6) LA Diam: 5.1 cm (2.7 - 3.8) MV EXCURSION: 18.739 mm (> 18.000) MV EF SLOPE: 58 mm/s (70 - 150) EPSS: 2.2 cm MV E Ender: 1.02 m/s MV DecT: 180 ms MV A Ender: 0.89 m/s MV E/A Ratio: 1.14 RAP: 5.00 mmHg RVSP: 11.99 mmHg FINDINGS -------- Sinus rhythm. This was a technically adequate study. The left ventricle is mildly dilated. There is moderate concentric left ventricular hypertrophy. There is moderate global hypokinesis of LV . Overall left ventricular systolic function is moderate ly impaired with, an EF between 35 - 40 %. Septal wall motion is delayed and consistent with prior cardiac surgery. Inferior Hypokinesis The right ventricle is moderately enlarged. LA is severely dilated >40 ml/m2 The right atrial size is normal. Interatrial and interventricular septum intact. There is mild to moderate aortic valve sclerosis. There is no evidence of aortic regurgitation. T here is no evidence of aortic stenosis. Moderate mitral regurgitation is present. Mild tricuspid regurgitation present. There is no evidence of pulmonary hypertension. The right v entricular systolic pressure, as measured by Doppler, is 11.99mmHg. There is no pulmonic regurgitation present. The aortic root size is normal. IVC Not well visulized. There is no pericardial effusion. CONCLUSIONS -------- 1. The left ventricle is mildly dilated. 2. There is moderate concentric left ventricular hypertrophy. 3. There is moderate global hypokinesis of LV . 4. Overall left ventricular systolic function is moderately impaired with, an EF between 35 - 40 %. 5. Inferior Hypokinesis 6. The right ventricle is moderately enlarged. 7. LA is severely dilated >40 ml/m2 8. There is mild to moderate aortic valve sclerosis. 9. Moderate mitral regurgitation is present. 10. Mild tricuspid regurgitation present. SCREENING REPRESENTATIVE: Alondra Rico RDCS
[2021-07-16] MEDS ORDERED: HEPARIN SODIUM 1,000 UN/ML (10ML VL) IVP ONE (12:14)
[2021-07-16] MEDS ORDERED: IOPAMIDOL-370 125ML BTL INJ ONE (12:18)
--- NOTE | 2021-07-16 12:24 | P.CARDCATH ---
Date of Procedure: 07/16/21 Preoperative Diagnosis: Non-ST segment elevation MS Postoperative Diagnosis: Non-STEMI Procedure(s) Performed: Left heart catheterization Coronary angiogram Injection of the WU Venous graft 2 Anesthesia: MAC (Moderate conscious sedation total sedation time was 28 minutes) Indications for Procedure: Acute non-STEMI in a patient with known CAD status post CABG with WU to LAD venous graft to OM venous graft to RCA venous graft to one of the OM's was occluded in the past Operative Findings: [place] coronary arteries: Left Main coronary artery is 90% stenosis distally divides into left anterior descending coronary artery and circumflex coronary artery which are both occluded proximally Right coronary artery was occluded proximally Bypass grafts: WU to LAD appears patent proximal and distal anastomotic sites are free of disease [place] LAD is not very well visualized Has a peculiar takeoff from the left subclavian artery Venous graft to the OM branch shows a 90% stenosis proximally Venous graft to the right coronary artery shows an 80-90% stenosis in its midportion with a focal 90% stenosis involving the PLV branch The venous graft to a second OM branch was occluded on a prior cardiac catheterization in 2013 Conclusions: Severe [place] three-vessel coronary artery disease Patent WU to LAD Patent venous graft to OM with proximal 90% stenosis Occluded venous graft to the second OM and a previous Patent venous graft to the RCA that shows a focal stenosis in its midportion and a tight stenosis in the PLV branch Plan: Patient will undergo angioplasty of the venous graft to the OM and will attempt angioplasty of the [place] PLV and the bypass graft Angiographic data was reviewed by Dr. Yoo the available joinery setter out Description of Procedure: Upper obtaining informed consent left heart catheterization coronary angiogram and selective injection of the bypass grafts was performed using right and left [place] catheters patient tolerated the procedure well without any obvious immediate complications Procedures performed via the right femoral artery
[2021-07-16] MEDS ORDERED: TICAGRELOR 90 MG TAB ONE (12:34)
[2021-07-16] MEDS ORDERED: TICAGRELOR 90 MG TAB PO ONE (12:39)
[2021-07-16] MEDS ORDERED: IOPAMIDOL-370 100ML BTL INJ ONE (12:39)
[2021-07-16] MEDS ORDERED: MAG HYDROX/AL HYDROX/SIMETH 30 ML CUP PO PRN (12:48)
[2021-07-16] MEDS ORDERED: RX INFO: IV CONTRAST WAS GIVEN 1 EACH MISC MISCELLANE PRN (12:48)
[2021-07-16] MEDS ORDERED: NITROGLYCERIN SL TABS 0.4 MG TAB SUBLINGUAL PRN (12:48)
[2021-07-16] MEDS ORDERED: ATROPINE SULFATE 0.1 MG/ML 10ML SYRINGE IV PRN (12:48)
[2021-07-16] MEDS ORDERED: ZOLPIDEM 5 MG TAB PO PRN (12:48)
[2021-07-16] MEDS: METHADONE 10 MG TAB PO SCH ×3 (13:57→23:03)
[2021-07-16] MEDS: ALPRAZolam 0.25 MG TAB PO PRN (13:57)
[2021-07-16] MEDS: GABAPENTIN 300 MG CAP PO SCH ×3 (13:57→21:09)
[2021-07-16 14:08] LABS: African American GFR (CKD) >90 (>60 ml/min/1.73 sqM); Anion Gap 9 mmol/L; Blood Urea Nitrogen 19 mg/dL (9-20); Calcium 8.9 mg/dL (8.4-10.2); Carbon Dioxide 22 mmol/L (22-30); Chloride 104 mmol/L (98-107); Glucose 175 mg/dL (74-99); Non-African American GFR(CKD) >90 (>60 ml/min/1.73 sqM); Potassium 4.3 mmol/L (3.5-5.1); Sodium 135 mmol/L (137-145)
[2021-07-16] MEDS: LORazepam 2 MG/ML INJ IV PRN (15:11)
[2021-07-16 17:02] LABS: Glucose,Whole Blood 102 mg/dL (75-99)
[2021-07-16] MEDS ORDERED: LOPERAMIDE 2 MG CAP PO PRN (17:30)
[2021-07-16] MEDS ORDERED: ACETAMINOPHEN TAB 325 MG TAB PO PRN (17:30)
[2021-07-16] MEDS ORDERED: TEMAZEPAM 15 MG CAP PO PRN (17:30)
[2021-07-16] MEDS ORDERED: LACTULOSE 20 GM/30 ML CUP PO PRN (17:30)
--- NOTE | 2021-07-16 17:45 | PTCA ---
PERCUTANEOUSTRANS CORORONARY ANGIOGRAPHY DATE OF SERVICE: 07/16/2021. PROCEDURE: PTCA and stenting of the proximal portion of the body of the vein graft to the obtuse marginal branch of circumflex with a drug-eluting stent. PERFORMED BY: Dr. Gertrude Yoo. Moderate conscious sedation time was 21 minutes. The patient was administered Versed and fentanyl and his oxygen saturation, hemodynamics and EKG were monitored closely. CLINICAL INFORMATION: Mr. Buddy Campbell is a 66-year-old gentleman who was seen and evaluated by Dr. Coppola. He presented with non ST elevation VA, had history of 2 previous bypass surgeries. The last one was in 2011. Cardiac cath revealed that the WU was patent and there was a vein graft to the obtuse marginal branch of circumflex which had 80-90 percent proximal lesion with haziness and proximal narrowing. The distal insertion site was free of significant disease. There was mild diffuse disease in the circumflex marginal. The vein graft to the RCA had disease in the body of a 70% and beyond insertion, the PLV had a 95% narrowing. It appeared that the obtuse marginal graft was the culprit lesion. He was advised intervention that was performed in the same setting. PCI PROCEDURE DETAILS: From the right femoral approach, using the same 6-Somali introducer, I advanced over a guidewire a left bypass guide catheter of 6-[place]omali caliber and cannulated the vein graft to the obtuse marginal. A run-through wire was used to cross the lesion and wire was kept distally. A 3.0 caliber 12 mm NC Trek balloon was used to pre-dilate the lesion. I then deployed a 23 mm long 3.5 caliber Xience stent at 13 atmospheres. Excellent angiographic result was achieved. Patient did not have any chest pain or EKG changes. He received 6000 units of heparin and ACT was 289. Excellent angiographic result was achieved without complication. The sheath was sutured and he was sent to the room in a stable condition. The sheath will be pulled in 2-1/2 hours. Results were discussed with the patient. There was no family members available and patient did not want me to call anybody. Excellent angiographic result was achieved. RCA graft as well as [place] PLV branch of RCA intervention will be staged. MMODL / IJN: [id number] /
[2021-07-16] MEDS: INSULIN ASPART (NovoLOG) 100 UNIT/ML VIAL SQ SCH (17:46)
[2021-07-16 17:50] VITALS: BMI 28.4
[2021-07-16] MEDS: carvediloL 12.5 MG TAB PO SCH (18:45)
[2021-07-16 20:49] LABS: Glucose,Whole Blood 143 mg/dL (75-99)
[2021-07-16] MEDS: FUROSEMIDE 10 MG/ML 2 ML VIAL IV SCH (21:10)
--- NOTE | 2021-07-17 00:01 | XR ---
EXAMINATION TYPE: XR chest 1V portable DATE OF EXAM: 07/16/2021 COMPARISON: Today's HISTORY: Chest pain TECHNIQUE: FINDINGS: Heart is normal. There are sternal wires. There are some mild predominantly interstitial in filtrate left lower lobe. There is no pleural effusion. There are chest leads. There is no heart fail ure. Bony thorax is intact. IMPRESSION: There is some infiltrate left lower lobe. No heart failure seen. No change compared to ex am earlier today.
[2021-07-17] MEDS: ALPRAZolam 0.25 MG TAB PO PRN ×3 (00:22→22:07)
[2021-07-17 06:17] LABS: Glucose,Whole Blood 127 mg/dL (75-99)
[2021-07-17] MEDS: INSULIN ASPART (NovoLOG) 100 UNIT/ML VIAL SQ SCH ×3 (06:22→16:55)
[2021-07-17] MEDS: SODIUM CHLORIDE 0.9% 1,000 ML IV SCH (06:48)
[2021-07-17] MEDS: carvediloL 12.5 MG TAB PO SCH ×2 (06:49→16:55)
[2021-07-17] MEDS ORDERED: HEPARIN SODIUM,PORCINE 2,500 UNIT in SODIUM CHLORIDE 0.9% 250 ML IRRIGATION PRN (07:00)
[2021-07-17] MEDS ORDERED: HEPARIN SODIUM,PORCINE 10,000 UNIT in SODIUM CHLORIDE 0.9% 1,000 ML IRRIGATION PRN (07:00)
[2021-07-17] MEDS: FUROSEMIDE 10 MG/ML 2 ML VIAL IV SCH (08:37)
[2021-07-17] MEDS: METHADONE 10 MG TAB PO SCH ×3 (08:37→22:07)
[2021-07-17] MEDS: TICAGRELOR 90 MG TAB PO SCH ×2 (08:37→22:07)
[2021-07-17] MEDS: ASPIRIN 81 MG PO SCH (08:37)
[2021-07-17] MEDS: GABAPENTIN 300 MG CAP PO SCH ×3 (08:38→22:06)
[2021-07-17] MEDS: ATORVASTATIN 80 MG TAB PO SCH (08:38)
[2021-07-17] MEDS: lisinopriL 20 MG TAB PO SCH (08:38)
--- NOTE | 2021-07-17 10:01 | P.PN ---
Subjective Progress Note Date: 07/17/21 Principal diagnosis: Acute non-ST segment elevation DE Patient is chest pain-free and ambulating without problems anxious to go home He had angioplasty with stent placement the ostial portion of the venous graft to the OM Has a lesion within the venous graft to the right coronary artery and the need to PLV which will be addressed as outpatient next week He is an optimal medical therapy Ejection fraction is 35% Objective - Vital Signs Vital signs: Vital Signs Temp 97.6 F 07/17/21 04:00 Pulse 48 L 07/17/21 04:00 Resp 18 07/17/21 04:00 BP 88/52 07/17/21 04:00 Pulse Ox 95 07/17/21 04:00 Intake & Output 07/16/21 07/17/21 07/17/21 18:59 06:59 18:59 Intake Total 336.445 240 Output Total 800 1000 Balance -463.555 -1000 240 Weight 103.147 kg 101.2 kg Intake: IV 50 Intake, IV Titration 46.445 Amount Heparin Sod,Pork in 0.45% 46.445 NaCl 25,000 unit In 0.45 % NaCl 1 250ml.bag @ 9.71 UNITS/KG/HR 10.016 mls/ hr IV .[facility]24H [facility] Rx#: [id number] Oral 240 240 Output: Urine 800 1000 Other: Voiding Method Toilet Toilet Urinal # Voids 1 - Exam General: The patient is awake and alert, in no distress, and does not appear acutely ill. Skin: Skin is warm and dry and no rashes or lesions are noted. Eye: Pupils are equal, round and reactive to light, extra-ocular movements are intact; there is normal conjunctiva bilaterally. Ears, nose, mouth and throat: There are moist mucous membranes and no oral lesions. Neck: The neck is supple, there is no tenderness or JVD. Cardiovascular: There is a regular rate and rhythm. No murmur, rub or gallop is appreciated. Respiratory: Lungs are clear to auscultation, respirations are non-labored, breath sounds are equal. Gastrointestinal: Soft, non-distended, non-tender abdomen without masses or organomegaly noted. There is no rebound or guarding present. Bowel sounds are unremarkable. Back: There is no tenderness to palpation in the midline. There is no obvious deformity. Musculoskeletal: Normal ROM, no tenderness, There is no pedal edema. There is no calf tenderness or swelling. Extremities: No edema. Vascular: Femoral pulse is normal. Posterior tibial pulses are normal .Dorsalis pedis is palpable. Neurological: CN II-XII intact. There are no obvious motor or sensory deficits. Speech is normal. Psychiatric: Cooperative, appropriate mood & affect, normal judgment. Vascular access site in the right groin is free of bleeding bruit hematoma - Labs CBC & Chem 7: 07/16/21 09:04 Labs: Abnormal Lab Results - Last 24 Hours (Table) 07/16/21 07/16/21 07/16/21 Range/Units 09:04 09:04 10:34 Sodium 135 L (137-145) mmol/L Glucose 175 H (74-99) mg/dL POC Glucose (mg/dL) 117 H (75-99) mg/dL Troponin I 10.400 H* (0.000-0.034) ng/mL 07/16/21 07/16/21 07/17/21 Range/Units 16:50 20:22 06:06 Sodium (137-145) mmol/L Glucose (74-99) mg/dL POC Glucose (mg/dL) 102 H 143 H 127 H (75-99) mg/dL Troponin I (0.000-0.034) ng/mL Assessment and Plan Assessment: Acute non-ST segment elevation DE Plan: Patient is status post angioplasty of venous graft to the OM And optimal medical therapy including dual antiplatelet therapy statins beta blockers I will check an EKG on him today Reviewed echo findings I will ambulate and discharge him home tomorrow He will undergo angioplasty of venous graft to the right and the [place] sometime next week
[2021-07-17 10:03] LABS: Basophils # (A) 0.1 k/uL (0-0.2); Basophils % (A) 1 %; Eosinophils # (A) 0.1 k/uL (0-0.7); Eosinophils % (A) 2 %; HCT 54.5 % (39.0-53.0); HGB 17.7 gm/dL (13.0-17.5); Lymphocytes # (A) 1.7 k/uL (1.0-4.8); Lymphocytes % (A) 21 %; MCH 30.3 pg (25.0-35.0); MCHC 32.4 g/dL (31.0-37.0); MCV 93.3 fL (80.0-100.0); Monocytes # (A) 0.5 k/uL (0-1.0); Monocytes % (A) 7 %; Neutrophils # (A) 5.4 k/uL (1.3-7.7); Neutrophils % (A) 68 %; Platelet Count 164 k/uL (150-450); RBC 5.84 m/uL (4.30-5.90); RDW 15.5 % (11.5-15.5)
[2021-07-17 10:10] LABS: ALT 15 U/L (4-49); AST 75 U/L (17-59); African American GFR (CKD) >90 (>60 ml/min/1.73 sqM); Albumin 3.7 g/dL (3.5-5.0); Alkaline Phosphatase 54 U/L (38-126); Anion Gap 5 mmol/L; Blood Urea Nitrogen 15 mg/dL (9-20); Calcium 8.8 mg/dL (8.4-10.2); Carbon Dioxide 31 mmol/L (22-30); Chloride 99 mmol/L (98-107); Glucose 215 mg/dL (74-99); Magnesium 1.6 mg/dL (1.6-2.3); Non-African American GFR(CKD) 78 (>60 ml/min/1.73 sqM); Phosphorus 4.3 mg/dL (2.5-4.5); Potassium 4.1 mmol/L (3.5-5.1); Sodium 135 mmol/L (137-145); Total Bilirubin 1.8 mg/dL (0.2-1.3); Total Protein 6.6 g/dL (6.3-8.2)
[2021-07-17 11:33] LABS: Glucose,Whole Blood 133 mg/dL (75-99)
--- NOTE | 2021-07-17 13:05 | P.HPIM ---
History of Present Illness H&P Date: 07/16/21 Chief Complaint: Chest pain This is a pleasant 66-year-old patient who follows with Dr. Barreto. Chronic stable medical conditions include diabetes, hypertension, hyperlipidemia PAD with coronary bypass in 1999 fem-pop bypass in 2012. Patient is a former smoker. A weak ago when patient was done without making to his girlfriend he developed chest pressure. Symptoms subsided. Yesterday he felt his stomach to be upset. Then he felt he wanted to panic attack. Subsequently he developed chest pressure in the middle of the chest lasted for good 10 minutes. Did go up to h is neck. There is no dizziness nor lightheadedness. She did break out in a sweat and became short of breath. Subsequently decided to go down to hospital. His previous treatment has been at [facility]. He did not have any beds therefore patient was transferred here. Patient had ruled in for an acute non-Q-wave [place]. Patient did undergo diagnostic cardiac catheterization by Dr. Florina Meeks. More details of his notes. Review of systems: GEN.: Tired EYES: None HEENT: None NECK: None RESPIRATORY: As above CARDIOVASCULAR: As above GASTROINTESTINAL: None GENITOURINARY: None MUSCULOSKELETAL: None LYMPHATICS: None HEMATOLOGICAL: None PSYCHIATRY: Anxious NEUROLOGICAL: None Past medical history to include: CAD with stent, coronary bypass in 1999, diabetes mellitus, hypertension, hyperlipidemia, PAD with fem-pop bypass in 2012 Social history: Patient stopped smoking in 1987. Uses marijuana cookie for insomnia. Lives alone. 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 Family history: Reviewed, noncontributory to presentation Physical examination: VITAL SIGNS: 98, 68, 16, 120/79, 96% room air GENERAL: BMI 28.4, laying in bed, awake, slightly anxious. EYES: Pupils equal. Conjunctiva normal. HEENT: External appearance of nose and ears normal, oral cavity grossly normal. NECK: JVD not raised; masses not palpable. HEART: First and second heart sounds are normal; no edema. LUNGS: Respiratory rate normal; decreased breath sounds. ABDOMEN: Soft, nontender, liver spleen not palpable, no masses palpable. PSYCH: Alert and oriented x3; mood and affect anxiousl. MUSCULOSKELETAL:No Clubbing/cyanosis;muscles-grossly intact NEUROLOGICAL: Cranial nerves grossly intact; no facial asymmetry, power and sensation grossly intact. LYMPHATICS: No lymph nodes palpable in the axilla and neck INVESTIGATIONS, reviewed in the clinical context: Sodium 135 potassium 4.3 creatinine 0.83 Troponin I: 8.2, 10.4 Coronavirus [PCR]: Not detected Labs from outside hospital: Hemoglobin 19.8 platelets 219 troponin I 1.31 EKG tracing personally reviewed by me-ST segment depression in lateral leads. Flipped T waves in inferior leads Chest x-ray film personally reviewed by me-some reticular pattern infiltrates present bilaterally. Assessment and plan: -Acute non-Q-wave myocardial infarction Cardiac catheterization revealed some obstruction of the bypass. Follow with cardiology Aspirin, Lipitor, Coreg, IV heparin, Brilinta -IV heparin monitoring Follow PTT -Essential hypertension Zestril 20 mg daily, Coreg 12.5 by mouth twice a day -Hyperlipidemia Lipitor 80 mg daily -PAD Aspirin, Lipitor -Chronic insomnia Restoril Continue current medication treatment plan. IV heparin. Home medications and resume. Patient is a former diabetic. Follow Accu-Cheks. Care was discussed with the patient. Questions answered. Follow with cardiology. Given the complexity and severity of patient's condition expect the patient to be in the hospital at least for 2 overnights Past Medical History Past Medical History: Coronary Artery Disease (CAD), Diabetes Mellitus, Hyperlipidemia, Hypertension, Vascular Disorder History of Any Multi-Drug Resistant Organisms: None Reported Past Surgical History: Coronary Bypass/CABG, Heart Catheterization, Heart Catheterization With Stent, Orthopedic Surgery Additional Past Surgical History / Comment(s): left wrist subluxed tendon repair, bilateral cataract removal, fem pop bypass 2012, cabg 1999 Past Anesthesia/Blood Transfusion Reactions: No Reported Reaction Date of Last Stent Placement:: 1999 Past Psychological History: No Psychological Hx Reported Smoking Status: Former smoker Past Alcohol Use History: None Reported Additional Past Alcohol Use History / Comment(s): Patient was a smoker and quit in 1987. He uses daily marijuana cookie for insomnia. He denies any illicit drug use or alcohol use. He denies any significant travel but did go to [facility] last year. No service. 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 Past Drug Use History: None Reported Additional Drug Use History / Comment(s): Daily marijuana use in the form of cookies. - Past Family History Mother Family Medical History: No Reported History Additional Family Medical History / Comment(s): at age 96 Father Family Medical History: Coronary Artery Disease (CAD) Additional Family Medical History / Comment(s): at age 54. Medications and Allergies Home Medications Medication Instructions Recorded Confirmed Type Clopidogrel [Plavix] 75 mg PO HS 02/24/16 07/16/21 History Methadone HCl [Dolophine HCl] 20 mg PO QID 02/24/16 07/16/21 History Carvedilol [Coreg] 12.5 mg PO HS 09/24/18 07/16/21 History Enalapril [Vasotec] 20 mg PO HS 07/16/21 07/16/21 History Gabapentin 900 mg PO QID 07/16/21 07/16/21 History Testosterone Cypionate 200 mg IM Q7D 07/16/21 07/16/21 History [Depo-Testosterone] Allergies Allergy/AdvReac Type Severity Reaction Status Date / Time nitroglycerin AdvReac Headache Verified 07/16/21 09:46 Physical Exam Vitals: Vital Signs Temp Pulse Pulse Resp BP BP Pulse Ox 07/16/21 10:00 86 18 07/16/21 09:38 98.0 F 86 18 128/86 95 07/16/21 09:16 78 18 118/72 99 07/16/21 07:58 76 18 124/101 100 07/16/21 07:00 57 L 12 102/78 07/16/21 04:49 98.3 F 87 10 L 130/82 95 Intake and Output 07/15/21 07/16/21 07/16/21 22:59 06:59 14:59 Intake Total 46.445 Balance 46.445 Intake: Intake, IV Titration 46.445 Amount Heparin Sod,Pork in 0.45% 46.445 NaCl 25,000 unit In 0.45 % NaCl 1 250ml.bag @ 9.71 UNITS/KG/HR 10.016 mls/ hr IV .Q24H [facility] Rx#: [id number] Other: Voiding Method Toilet Weight 103.147 kg 103.147 kg Results CBC & Chem 7: 07/17/21 09:03 07/17/21 09:03 Labs: Abnormal Lab Results - Last 24 Hours (Table) 07/16/21 07/16/21 07/16/21 Range/Units 06:54 06:54 09:04 APTT 34.6 H (22.0-30.0) sec POC Glucose (mg/dL) (75-99) mg/dL Troponin I 8.210 H* 10.400 H* (0.000-0.034) ng/mL 07/16/21 Range/Units 10:34 APTT (22.0-30.0) sec POC Glucose (mg/dL) 117 H (75-99) mg/dL Troponin I (0.000-0.034) ng/mL Thrombosis Risk Factor Assmnt - Choose All That Apply Any of the Below Risk Factors Present?: Yes Each Factor Represents 1 point: Obesity (BMI >25) Other Risk Factors: Yes Each Risk Factor Represents 2 Points: Age 61-74 years Other congenital or acquired thrombophilia - If yes, enter type in comment: No Thrombosis Risk Factor Assessment Total Risk Factor Score: 3 Thrombosis Risk Factor Assessment Level: Moderate Risk
[2021-07-17 16:52] LABS: Glucose,Whole Blood 132 mg/dL (75-99)
[2021-07-17] MEDS ORDERED: SPIRONOLACTONE 25 MG TAB PO SCH (18:00)
--- NOTE | 2021-07-17 18:25 | P.PN ---
Progress Note - Text Progress Note Date: 07/17/21 Chief Complaint: Chest pain This is a pleasant 66-year-old patient who follows with Dr. Barreto. Chronic stable medical conditions include diabetes, hypertension, hyperlipidemia PAD with coronary bypass in 1999 fem-pop bypass in 2012. Patient is a former smoker. A weak ago when patient was done without making to his girlfriend he developed chest pressure. Symptoms subsided. Yesterday he felt his stomach to be upset. Then he felt he wanted to panic attack. Subsequently he developed chest pressure in the middle of the chest lasted for good 10 minutes. Did go up to his neck. There is no dizziness nor lightheadedness. She did break out in a sweat and became short of breath. Subsequently decided to go down to hospital. His previous treatment has been at [facility]. He did not have any beds therefore patient was transferred here. Patient had ruled in for an acute non-Q-wave [place]. Patient did undergo diagnostic cardiac catheterization by Dr. Florina Meeks. More details of his notes. Admitted with acute non-Q-wave [place]. Underwent angioplasty stenting of the proximal portion of the body of the vein graft to the obtuse marginal branch of the circumflex. July 17: No chest pain. Patient extremely anxious. Pacing up and down. Did have the patient downloaded and On his phone for mindfulness. Trouble sleeping. Ambien for insomnia. We'll start patient on Paxil 20 mg a day. Review of systems: Was done for constitutional, cardiovascular, GI, pulmonary. relevant finding as above Active Medications Acetaminophen (Acetaminophen Tab 325 Mg Tab) 650 mg PO Q6HR PRN PRN Reason: Mild Pain or Fever > 100.5 Al Hydroxide/Mg Hydroxide (Mag Hydrox/Al Hydrox/Simeth 30 Ml Cup) 30 ml PO Q4HR PRN PRN Reason: Heartburn Last Admin: 07/16/21 23:03 Dose: 30 ml Documented by: Alprazolam (Alprazolam 0.25 Mg Tab) 0.25 mg PO TID PRN PRN Reason: Anxiety Last Admin: 07/17/21 13:06 Dose: 0.25 mg Documented by: Aspirin (Aspirin 81 Mg) 81 mg PO DAILY [facility] Last Admin: 07/17/21 08:37 Dose: 81 mg Documented by: Atorvastatin Calcium (Atorvastatin 80 Mg Tab) 80 mg PO DAILY [facility] Last Admin: 07/17/21 08:38 Dose: 80 mg Documented by: Atropine Sulfate (Atropine Sulfate 0.1 Mg/Ml 10ml Syringe) 0.5 mg IV ONCE PRN PRN Reason: Symptomatic Bradycardia Carvedilol (Carvedilol 12.5 Mg Tab) 12.5 mg PO BID-W/MEALS [facility] Last Admin: 07/17/21 16:55 Dose: 12.5 mg Documented by: Furosemide (Furosemide 40 Mg Tab) 40 mg PO DAILY [facility] Gabapentin (Gabapentin 300 Mg Cap) 900 mg PO QID [facility] Last Admin: 07/17/21 15:18 Dose: 900 mg Documented by: Sodium Chloride (Saline 0.9%) 1,000 mls @ 20 mls/hr IV .Q24H [facility] Last Admin: 07/17/21 06:48 Dose: Not Given Documented by: Heparin Sodium (Porcine) 10, (000 unit/ Sodium Chloride) 1,001 mls @ 999 mls/hr IRRIGATION ONCE PRN PRN Reason: INTRA-OP Stop: 07/17/21 23:00 Heparin Sodium (Porcine) 2,500 (unit/ Sodium Chloride) 250.5 mls @ 250 mls/hr IRRIGATION ONCE PRN PRN Reason: INTRA-OP Stop: 07/17/21 23:00 Insulin Aspart (Insulin Aspart (Novolog) 100 Unit/Ml Vial) 0 unit SQ AC-TID [facility]; Protocol Last Admin: 07/17/21 16:55 Dose: Not Given Documented by: Lactulose (Lactulose 20 Gm/30 Ml Cup) 20 gm PO DAILY PRN PRN Reason: Constipation Lisinopril (Lisinopril 20 Mg Tab) 20 mg PO DAILY [facility] Last Admin: 07/17/21 08:38 Dose: 20 mg Documented by: Loperamide HCl (Loperamide 2 Mg Cap) 2 mg PO Q2HR PRN PRN Reason: Loose Stool Lorazepam (Lorazepam 2 Mg/Ml Inj) 0.5 mg IV Q6HR PRN PRN Reason: Anxiety Last Admin: 07/16/21 15:11 Dose: 0.5 mg Documented by: Methadone HCl (Methadone 10 Mg Tab) 20 mg PO QID [facility] Last Admin: 07/17/21 15:18 Dose: 20 mg Documented by: Miscellaneous Information (Rx Info: Iv Contrast Was Given 1 Each Misc) 1 each MISCELLANE DAILY PRN PRN Reason: Per Protocol Stop: 07/18/21 12:49 Morphine Sulfate (Morphine Sulfate 4 Mg/Ml Syringe) 4 mg IV Q4HR PRN PRN Reason: Severe Pain Last Admin: 07/16/21 21:09 Dose: 4 mg Documented by: Naloxone HCl (Naloxone 0.4 Mg/Ml 1 Ml Vial) 0.2 mg IV Q2M PRN PRN Reason: Opioid Reversal Nitroglycerin (Nitroglycerin Sl Tabs 0.4 Mg Tab) 0.4 mg SUBLINGUAL Q5M PRN PRN Reason: Chest Pain Prochlorperazine Maleate (Prochlorperazine 5 Mg Tab) 5 mg PO Q8HR PRN PRN Reason: Nausea And Vomiting Temazepam (Temazepam 15 Mg Cap) 15 mg PO HS PRN PRN Reason: Insomnia Ticagrelor (Ticagrelor 90 Mg Tab) 90 mg PO BID [facility]; Protocol Last Admin: 07/17/21 08:37 Dose: 90 mg Documented by: Zolpidem Tartrate (Zolpidem 5 Mg Tab) 5 mg PO HS PRN PRN Reason: Insomnia Past medical history to include: CAD with stent, coronary bypass in 1999, diabetes mellitus, hypertension, hyperlipidemia, PAD with fem-pop bypass in 2012 Social history: Patient stopped smoking in 1987. Uses marijuana cookie for insomnia. Lives alone. 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 Family history: Reviewed, noncontributory to presentation Physical examination: VITAL SIGNS: 97.9, 56, 18, 102/56, 98% room air GENERAL: Pacing up and down, very anxious EYES: Pupils equal. Conjunctiva normal. HEENT: External appearance of nose and ears normal, oral cavity grossly normal. NECK: JVD not raised; masses not palpable. HEART: First and second heart sounds are normal; no edema. LUNGS: Respiratory rate normal; decreased breath sounds. ABDOMEN: Soft, nontender, liver spleen not palpable, no masses palpable. PSYCH: Alert and oriented x3; mood and affect very anxious. MUSCULOSKELETAL:No Clubbing/cyanosis;muscles-grossly intact NEUROLOGICAL: Cranial nerves grossly intact; no facial asymmetry, power and sensation grossly intact. LYMPHATICS: No lymph nodes palpable in the axilla and neck INVESTIGATIONS, reviewed in the clinical context: July 17: White count 8 hemoglobin 7.7 platelets 164 potassium 4.1 creatinine 0.99 2-D echocardiogram: Moderate concentric LVH. Global hypokinesis 70. EF 35-40%. Moderate MR. Sodium 135 potassium 4.3 creatinine 0.83 Troponin I: 8.2, 10.4 Coronavirus [PCR]: Not detected Labs from outside hospital: Hemoglobin 19.8 platelets 219 troponin I 1.31 EKG tracing personally reviewed by me-ST segment depression in lateral leads. Flipped T waves in inferior leads Chest x-ray film personally reviewed by me-some reticular pattern infiltrates present bilaterally. Assessment and plan: -Acute non-Q-wave myocardial infarction Cardiac catheterization: Underwent angioplasty stenting of the proximal portion of the body of the vein graft to the obtuse marginal branch of the circumflex Aspirin, Lipitor, Coreg, IV heparin, Brilinta -CAD with a prior history of stent Aspirin, Lipitor, Coreg, -Acute congestive heart failure exacerbation systolic dysfunction EF 35-40%. Lasix 40 mg. Add Aldactone 12.5 by mouth daily at 6 PM -IV heparin monitoring Follow PTT -Essential hypertension Zestril 20 mg daily, Coreg 12.5 by mouth twice a day -Hyperlipidemia Lipitor 80 mg daily -PAD Aspirin, Lipitor -Chronic insomnia Ambien -Generalized anxiety disorder, uncontrolled: New diagnosis *Paxil 20 mg a day. Mild fullness lesa downloaded on the phone for patient to practice 3 times a day Admitted Paxil 20 mg a day. Juan Jose for insomnia. Mild fullness. Patient counseled. Remains on IV heparin. Add Aldactone 12.5 mg at 6 PM.
[2021-07-17 21:44] LABS: Glucose,Whole Blood 153 mg/dL (75-99)
[2021-07-17] MEDS: PARoxetine 20 MG TAB PO SCH (22:09)
[2021-07-18] MEDS: METHADONE 10 MG TAB PO SCH (00:42)
[2021-07-18] MEDS: GABAPENTIN 300 MG CAP PO SCH (00:45)
[2021-07-18] MEDS: LORazepam 2 MG/ML INJ IV PRN (01:13)
[2021-07-18 06:23] VITALS: RESP 16
[2021-07-18] MEDS: INSULIN ASPART (NovoLOG) 100 UNIT/ML VIAL SQ SCH ×2 (06:23→12:13)
[2021-07-18] MEDS: carvediloL 12.5 MG TAB PO SCH (06:24)
[2021-07-18 06:48] LABS: Glucose,Whole Blood 160 mg/dL (75-99)
[2021-07-18] MEDS: SODIUM CHLORIDE 0.9% 1,000 ML IV SCH (08:25)
[2021-07-18] MEDS: PARoxetine 20 MG TAB PO SCH (08:38)
[2021-07-18] MEDS: lisinopriL 20 MG TAB PO SCH (08:38)
[2021-07-18] MEDS: ASPIRIN 81 MG PO SCH (08:39)
[2021-07-18] MEDS: TICAGRELOR 90 MG TAB PO SCH (08:39)
[2021-07-18] MEDS: ATORVASTATIN 80 MG TAB PO SCH (08:39)
[2021-07-18] MEDS ORDERED: FUROSEMIDE 40 MG TAB PO SCH (09:00)
[2021-07-18] MEDS ORDERED: METHADONE 10 MG TAB PO SCH (09:00)
[2021-07-18] MEDS ORDERED: FUROSEMIDE 20 MG TAB PO SCH (09:00)
[2021-07-18] MEDS ORDERED: GABAPENTIN 300 MG CAP PO SCH (09:00)
[2021-07-18 09:56] VITALS: BP 118/57; PULSE 62; TEMP 97
[2021-07-18 11:37] LABS: Glucose,Whole Blood 100 mg/dL (75-99)
--- NOTE | 2021-07-18 13:25 | P.PN ---
Progress Note - Text Patient is doing well he is anxious to go home and free of symptoms He has known CAD status post prior bypass surgery with patent WU to LAD venous graft to OM and RCA Presented with non-ST segment elevation IN and underwent angioplasty with stent placement of the ostial portion of the graft to the OM branch He has a lesion in the [place] PLB and also in the venous graft to the RCA in its midportion and needs angioplasty for these 2 in the outpatient setting This morning he denies chest pain difficulty in breathing or palpitations he is ambulating without any problems On exam his comfortable at rest vital signs are stable there is a jugular venous distention carotid upstroke is normal there is no bruit chest exam reveals good air entry bilaterally heart exam reveals first and second heart sounds systolic murmur left lower sternal border abdomen is soft exam extremities did not reveal any edema per for pulses are felt There are no labs from today Assessment acute non-ST segment elevation IN Plan Patient underwent with the angioplasty with stent placement of the venous graft to the OM He is stable for discharge I will schedule him angioplasty of the venous graft to the right and the [place] PLB Patient is on aspirin brillinta Coreg and statin
--- NOTE | 2021-07-18 13:51 | ECHOF ---
Referral Reason:nstemi MEASUREMENTS -------- HEIGHT: 182.9 cm WEIGHT: 100.7 kg BP: FINDINGS -------- Sinus rhythm. Echo done 07/16/21: Repeat for LV Function. Overall left ventricular systolic function is mild-moderately impaired with, an EF between 40 - 45 %. Basal inferior LV wall motion is hypokinetic. Apical septum LV wall motion is hypokinetic. CONCLUSIONS -------- 1. Sinus rhythm. 2. Overall left ventricular systolic function is mild-moderately impaired with, an EF between 40 - 45 %. RECEPTIONIST CLERK: Lyudmila Jerome RDCS
--- NOTE | 2021-07-18 20:03 | P.DS ---
Providers Date of admission: 07/16/21 05:54 Expected date of discharge: 07/18/21 Attending physician: Shane Castillo Consults: 07/16/21 05:35 Consult Physician Routine Consulting Provider: Nicki Anna Consult Reason/Comments: nstemi Do you want consulting provider notified?: Yes 07/16/21 12:49 Consult Physician Routine Consulting Provider: Edd Love Consult Reason/Comments: Post Interventional patient Do you want consulting provider notified?: Already Contacted [facility] Hospital Course: Chief Complaint: Chest pain This is a pleasant 66-year-old patient who follows with Dr. Barreto. Chronic stable medical conditions include diabetes, hypertension, hyperlipidemia PAD with coronary bypass in 1999 fem-pop bypass in 2012. Patient is a former smoker. A weak ago when patient was done without making to his girlfriend he developed chest pressure. Symptoms subsided. Yesterday he felt his stomach to be upset. Then he felt he wanted to panic attack. Subsequently he developed chest pressure in the middle of the chest lasted for good 10 minutes. Did go up to his neck. There is no dizziness nor lightheadedness. She did break out in a sweat and became short of breath. Subsequently decided to go down to hospital. His previous treatment has been at [facility]. He did not have any beds therefore patient was transferred here. Patient had ruled in for an acute non-Q-wave [place]. Patient did undergo diagnostic cardiac catheterization by Dr. Florina Meeks. More details of his notes. Admitted with acute non-Q-wave [place]. Underwent angioplasty stenting of the proximal portion of the body of the vein graft to the obtuse marginal branch of the circumflex. July 17: No chest pain. Patient extremely anxious. Pacing up and down. Did have the patient downloaded and On his phone for mindfulness. Trouble sleeping. Ambien for insomnia. We'll start patient on Paxil 20 mg a day. July 18: No chronic symptoms. Patient now come down. Patient to continue taking his Paxil. Discussed with cardiology. Cleared for discharge. He'll follow up with them as an outpatient. Further intervention for angioplasty of the venous graft to the right and the [place] PLB is being scheduled as outpatient. Discussion and discharge planning more than 35 minutes Consultation: Cardiology associates Past medical history to include: CAD with stent, coronary bypass in 1999, diabetes mellitus, hypertension, hyperlipidemia, PAD with fem-pop bypass in 2013 Social history: Patient stopped smoking in 1987. Uses marijuana cookie for insomnia. Lives alone. 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 Family history: Reviewed, noncontributory to presentation Physical examination: VITAL SIGNS: 97, 62, 16, 118/57, 91% room air GENERAL: Laying in bed, less anxious EYES: Pupils equal. Conjunctiva normal. HEENT: External appearance of nose and ears normal, oral cavity grossly normal. NECK: JVD not raised; masses not palpable. HEART: First and second heart sounds are normal; no edema. LUNGS: Respiratory rate normal; decreased breath sounds. ABDOMEN: Soft, nontender, liver spleen not palpable, no masses palpable. PSYCH: Alert and oriented x3; mood and affect anxious. MUSCULOSKELETAL:No Clubbing/cyanosis;muscles-grossly intact NEUROLOGICAL: Cranial nerves grossly intact; no facial asymmetry, power and sensation grossly intact. LYMPHATICS: No lymph nodes palpable in the axilla and neck INVESTIGATIONS, reviewed in the clinical context: July 17: White count 8 hemoglobin 7.7 platelets 164 potassium 4.1 creatinine 0.99 2-D echocardiogram: Moderate concentric LVH. Global hypokinesis 70. EF 35-40%. Moderate MR. Sodium 135 potassium 4.3 creatinine 0.83 Troponin I: 8.2, 10.4 Coronavirus [PCR]: Not detected Labs from outside hospital: Hemoglobin 19.8 platelets 219 troponin I 1.31 EKG tracing personally reviewed by me-ST segment depression in lateral leads. Flipped T waves in inferior leads Chest x-ray film personally reviewed by me-some reticular pattern infiltrates present bilaterally. Assessment and plan: -Acute non-Q-wave myocardial infarction Cardiac catheterization: Underwent angioplasty stenting of the proximal portion of the body of the vein graft to the obtuse marginal branch of the circumflex. Further intervention being scheduled as outpatient Aspirin, Lipitor, Coreg, IV heparin-discontinued, Brilinta -CAD with a prior history of stent Aspirin, Lipitor, Coreg, -Acute congestive heart failure exacerbation systolic dysfunction EF 35-40%. Lasix 40 mg. Aldactone 12.5 by mouth daily at 6 PM -IV heparin monitoring: Discontinued Follow PTT -Essential hypertension Zestril 20 mg daily, Coreg 12.5 by mouth twice a day -Hyperlipidemia Lipitor 80 mg daily -PAD Aspirin, Lipitor -Chronic insomnia Melatonin -Generalized anxiety disorder, uncontrolled: New diagnosis *Paxil 20 mg a day. Mildfullness lesa downloaded on the phone for patient to practice 3 times a day Disposition: Home Plan - Discharge Summary Discharge Rx Participant: No New Discharge Prescriptions: New Spironolactone [Aldactone] 12.5 mg PO DAILY@1800 #30 tab Ticagrelor [Brilinta] 90 mg PO BID #60 tab Furosemide [Lasix] 40 mg PO DAILY #30 tab Atorvastatin [Lipitor] 80 mg PO DAILY #30 tab Nitroglycerin Sl Tabs [Nitrostat] 0.4 mg SUBLINGUAL Q5M PRN #30 tab PRN Reason: Chest Pain Aspirin 81 mg PO DAILY #30 tab Melatonin 3 mg PO HS #30 tablet PARoxetine [Paxil] 20 mg PO DAILY #30 tab Continue Methadone HCl [Dolophine HCl] 20 mg PO QID Clopidogrel [Plavix] 75 mg PO HS Gabapentin 900 mg PO QID Enalapril [Vasotec] 20 mg PO HS Changed Carvedilol [Coreg] 12.5 mg PO BID #60 tab Discontinued Testosterone Cypionate [Depo-Testosterone] 200 mg IM Q7D Discharge Medication List Clopidogrel [Plavix] 75 mg PO HS 02/24/16 [History] Methadone HCl [Dolophine HCl] 20 mg PO QID 02/24/16 [History] Enalapril [Vasotec] 20 mg PO HS 07/16/21 [History] Gabapentin 900 mg PO QID 07/16/21 [History] Aspirin 81 mg PO DAILY #30 tab 07/18/21 [Rx] Atorvastatin [Lipitor] 80 mg PO DAILY #30 tab 07/18/21 [Rx] Carvedilol [Coreg] 12.5 mg PO BID #60 tab 07/18/21 [Rx] Furosemide [Lasix] 40 mg PO DAILY #30 tab 07/18/21 [Rx] Melatonin 3 mg PO HS #30 tablet 07/18/21 [Rx] Nitroglycerin Sl Tabs [Nitrostat] 0.4 mg SUBLINGUAL Q5M PRN #30 tab 07/18/21 [Rx] PARoxetine [Paxil] 20 mg PO DAILY #30 tab 07/18/21 [Rx] Spironolactone [Aldactone] 12.5 mg PO DAILY@1800 #30 tab 07/18/21 [Rx] Ticagrelor [Brilinta] 90 mg PO BID #60 tab 07/18/21 [Rx] Follow up Appointment(s)/Referral(s): cardiology, [Other] - 1 Week Justin Mckinley DO [Primary Care Provider] - 1-2 days Patient Instructions/Handouts: *Surgery [facility] - After Heart Catheterization - Analytics Consultant Instructions, Heart Attack (DC) Activity/Diet/Wound Care/Special Instructions: Brillinta free month coupon is in chart, make sure pt has this at d/c. Discharge Disposition: HOME SELF-CARE
== END 2021-07-18 14:40 | disposition home or self-care (01) | DRG 246 ==
LOC: EC 04:29 → 3SCARD 05:54
PROVIDERS: ADMIT Hospitalist; ATTEND Hospitalist
PROC: B2111ZZ Fluoroscopy of Multiple Coronary Arteries using Low Osmolar Contrast (ICD-10-PCS; 2021-07-16)
PROC: B2151ZZ Fluoroscopy of Left Heart using Low Osmolar Contrast (ICD-10-PCS; 2021-07-16)
PROC: B2181ZZ Fluoroscopy of Left Internal Mammary Bypass Graft using Low Osmolar Contrast (ICD-10-PCS; 2021-07-16)
PROC: B2121ZZ Fluoroscopy of Single Coronary Artery Bypass Graft using Low Osmolar Contrast (ICD-10-PCS; 2021-07-16)
PROC: 027034Z Dilation of Coronary Artery, One Artery with Drug-eluting Intraluminal Device, Percutaneous Approach (ICD-10-PCS; principal; 2021-07-16 10:00)
PROC: 4A023N7 Measurement of Cardiac Sampling and Pressure, Left Heart, Percutaneous Approach (ICD-10-PCS; 2021-07-16 10:00)
DX: I21.4 Non-ST elevation (NSTEMI) myocardial infarction (principal); I50.23 Acute on chronic systolic (congestive) heart failure; E11.51 Type 2 diabetes mellitus with diabetic peripheral angiopathy without gangrene; I70.209 Unspecified atherosclerosis of native arteries of extremities, unspecified extremity; I48.0 Paroxysmal atrial fibrillation; Z20.822 Contact with and (suspected) exposure to COVID-19; I34.0 Nonrheumatic mitral (valve) insufficiency; I25.10 Atherosclerotic heart disease of native coronary artery without angina pectoris; Z82.49 Family history of ischemic heart disease and other diseases of the circulatory system; I10 Essential (primary) hypertension; F41.0 Panic disorder [episodic paroxysmal anxiety]; F41.1 Generalized anxiety disorder; F51.04 Psychophysiologic insomnia; I11.0 Hypertensive heart disease with heart failure; I45.9 Conduction disorder, unspecified; E78.5 Hyperlipidemia, unspecified; Z95.1 Presence of aortocoronary bypass graft; Z95.5 Presence of coronary angioplasty implant and graft; Z88.8 Allergy status to other drugs, medicaments and biological substances; Z79.82 Long term (current) use of aspirin; Z79.02 Long term (current) use of antithrombotics/antiplatelets; Z79.899 Other long term (current) drug therapy; Z79.84 Long term (current) use of oral hypoglycemic drugs; Z87.891 Personal history of nicotine dependence; Z98.49 Cataract extraction status, unspecified eye
CPT/HCPCS: 71045; 80048; 80053; 83735; 84100; 84484; 85025; 85730; 87635; 93306; 93308; 93459; 96365; 96366; 96375; 99285

== ENCOUNTER 2024-02-15 08:09 | Day surgery (SDC) | payer MEDICARE, OTHER ==
[2024-02-15] MEDS ORDERED: DEXTROSE 50% SYRINGE 50 ML IVP ONE ×2 (09:00)
[2024-02-15] MEDS ORDERED: NA PHOS,M-B/NA PHOS,DI-BA 133 ML ENEMA RECTAL ONE ×2 (09:00)
[2024-02-15] MEDS ORDERED: LACTATED RINGERS 1,000 ML BAG ONE (09:30)
[2024-02-15] MEDS ORDERED: PROPOFOL 10 MG/ML 20 ML VIAL IV ONE (09:31)
[2024-02-15] MEDS ORDERED: LIDOCAINE 1% INJ 10MG/ML (20 ML MDV) ONE (09:31)
== END 2024-02-15 10:57 ==
LOC: ORWHC2ENDO 08:09
PROVIDERS: ATTEND Surgery Plastic and Reconstructive Surgery
DX: K57.30 Diverticulosis of large intestine without perforation or abscess without bleeding (principal); I25.10 Atherosclerotic heart disease of native coronary artery without angina pectoris; I10 Essential (primary) hypertension; I48.91 Unspecified atrial fibrillation; E11.9 Type 2 diabetes mellitus without complications; Z95.0 Presence of cardiac pacemaker; Z95.5 Presence of coronary angioplasty implant and graft; J44.9 Chronic obstructive pulmonary disease, unspecified; Z88.8 Allergy status to other drugs, medicaments and biological substances; Z79.899 Other long term (current) drug therapy; Z79.891 Long term (current) use of opiate analgesic
CPT/HCPCS: 45378

== ENCOUNTER → 2024-03-29 | Outpatient (CLI) | payer MEDICARE, OTHER ==
--- NOTE | 2024-03-29 12:18 | CT ---
EXAMINATION TYPE: CT chest wo con DATE OF EXAM: 03/29/2024 COMPARISON: None HISTORY: cough, difficulty breathing, pneumonia. CT DLP: 555.4 mGycm. Automated Exposure Control for Dose Reduction was Utilized. TECHNIQUE: CT scan of the thorax is performed without IV contrast. FINDINGS: There is a partially consolidative airspace opacity in the lingula with air bronchograms. The finding s suggest acute pneumonia but postobstructive pneumonitis not excluded. [facility]. There is a micronodule in the right lung. There is no suspicious lung mass. There is no pleural effusion or pneumothorax. There is an AICD device. The heart size is mildly prominent. There is no mediastinal, hilar or axillary adenopathy. Limited scanning through the upper abdomen reveals cholelithiasis and a distended gallbladder but no gallbladder wall thickening or pericholecystic fluid. No focal osseous lesions are seen. IMPRESSION: 1. Focal airspace consolidation in the lingula. Possible pneumonia or postobstructive pneumonitis in short-term follow-up to resolution is recommended. 2. Mild cardiomegaly and AICD device. 3. Cholelithiasis and distended gallbladder. [facility], , 03/29/2024 12:16 PM
== END | disposition home or self-care (01) ==
LOC: RADCTMAIN 11:32
PROVIDERS: ATTEND Internal Medicine
DX: J67.9 Hypersensitivity pneumonitis due to unspecified organic dust (principal); I51.7 Cardiomegaly; K80.20 Calculus of gallbladder without cholecystitis without obstruction; Z95.810 Presence of automatic (implantable) cardiac defibrillator
CPT/HCPCS: 71250

== ENCOUNTER 2024-06-13 09:57 | Day surgery (SDC) | payer MEDICARE, OTHER ==
--- NOTE | 2024-06-13 06:44 | P.GSHP ---
History of Present Illness H&P Date: 06/13/24 CHIEF COMPLAINT: Positive Cologuard HISTORY OF PRESENT ILLNESS: The patient is a 69-year-old male who presents with positive Cologuard. Lower endoscopy was offered for further evaluation and management. PAST MEDICAL HISTORY: Please see list. PAST SURGICAL HISTORY: Please see list. MEDICATIONS: Please see list. ALLERGIES: Please see list. SOCIAL HISTORY: No illicit drug use FAMILY HISTORY: No reports of Crohn disease or ulcerative colitis. REVIEW OF ORGAN SYSTEMS: CONSTITUTIONAL: No reports of fevers or chills. PHYSICAL EXAM: VITAL SIGNS: Stable GENERAL: Well-developed pleasant in no acute distress. HEENT: No scleral icterus. Extraocular movements grossly intact. Moist buccal mucosa. NECK: Supple without lymphadenopathy. CHEST: Unlabored respirations. Equal bilateral excursions. CARDIOVASCULAR: Regular rate and rhythm. Distal 2+ pulses. ABDOMEN: Soft, nontender, nondistended. MUSCULOSKELETAL: No clubbing, cyanosis, or edema. ASSESSMENT: 1. Cologuard PLAN: 1. Recommend proceeding with a lower endoscopy Past Medical History Past Medical History: Coronary Artery Disease (CAD), COPD, Diabetes Mellitus, Hyperlipidemia, Hypertension, Myocardial Infarction (SC), Osteoarthritis (OA), Sleep Apnea/CPAP/BIPAP Additional Past Medical History / Comment(s): IRREGULAR HEARTBEAT AT TIMES, hx of infection in his lung, rt trigger finger painful, wears 2 liters 02 at night Last Myocardial Infarction Date:: 06/2021 History of Any Multi-Drug Resistant Organisms: None Reported Past Surgical History: AICD, Coronary Bypass/CABG, Heart Catheterization, Heart Catheterization With Stent, Orthopedic Surgery, Pacemaker Additional Past Surgical History / Comment(s): left wrist subluxed tendon repair, bilateral cataract removal, fem pop bypass 2012, cabg 1999. singleton PM/defib Past Anesthesia/Blood Transfusion Reactions: No Reported Reaction Date of Last Stent Placement:: 2021 Type of Cardiac Device: Permanent Pacemaker, AICD Device Placement Date:: singleton pm/defib 10/14/2022 Smoking Status: Former smoker - Past Family History Mother Family Medical History: No Reported History Additional Family Medical History / Comment(s): at age 96 Father Family Medical History: Coronary Artery Disease (CAD) Additional Family Medical History / Comment(s): at age 54. Medications and Allergies Home Medications Medication Instructions Recorded Confirmed Type Methadone HCl [Dolophine HCl] 20 mg PO QID 02/24/16 06/12/24 History Gabapentin 900 mg PO QID 07/16/21 06/12/24 History Aspirin 81 mg PO DAILY #30 tab 07/18/21 06/12/24 Rx Atorvastatin [Lipitor] 80 mg PO DAILY #30 tab 07/18/21 06/12/24 Rx Furosemide [Lasix] 40 mg PO DAILY #30 tab 07/18/21 06/12/24 Rx Spironolactone [Aldactone] 12.5 mg PO DAILY@1800 #30 tab 07/18/21 06/12/24 Rx metFORMIN HCL [Glucophage] 1,000 mg PO BID 08/04/21 06/12/24 History Amiodarone HCl [Pacerone] 200 mg PO DAILY 06/12/24 06/12/24 History Clopidogrel [Plavix] 75 mg PO DAILY 06/12/24 06/12/24 History Coq10 200 mg PO DAILY 06/12/24 06/12/24 History Dapagliflozin Propanediol [Farxiga] 5 mg PO DAILY 06/12/24 06/12/24 History Melatonin 3 mg PO HS PRN 06/12/24 06/12/24 History Mullein Supplement 1 dose PO DAILY 06/12/24 06/12/24 History Testosterone Cypionate 200 mg IM Q10D 06/12/24 06/12/24 History [Depo-Testosterone] Ventolin Inhaler 1 puff INHALATION DIRECTED PRN 06/12/24 06/12/24 History carvediloL [Coreg] 3.125 mg PO BID 06/12/24 06/12/24 History diazePAM [Valium] 5 mg PO DIRECTED PRN 06/12/24 06/12/24 History Allergies Allergy/AdvReac Type Severity Reaction Status Date / Time nitroglycerin AdvReac Headache Verified 06/12/24 12:47 (SEVERE)
[2024-06-13] MEDS ORDERED: LACTATED RINGERS 1,000 ML IV SCH (10:11)
[2024-06-13] MEDS ORDERED: LIDOCAINE 1% (10MG/ML) FOR IV START INTRADERMA PRN (10:11)
[2024-06-13] MEDS: IV FLUID CONTINUATION 1,000 ML IV ONE ×2 (10:12→11:09)
[2024-06-13 10:22] VITALS: RESP 16; TEMP 98.2
[2024-06-13 10:39] LABS: Glucose,Whole Blood 69 mg/dL (70-110)
[2024-06-13] MEDS: DEXTROSE 50% SYRINGE 50 ML IVP STA (10:48)
[2024-06-13 10:59] LABS: Glucose,Whole Blood 119 mg/dL (70-110)
[2024-06-13] MEDS ORDERED: ePHEDrine 50 MG/ML 1 ML VIAL ONE (11:11)
[2024-06-13] MEDS ORDERED: PROPOFOL 10 MG/ML 20 ML VIAL IV ONE (11:11)
--- NOTE | 2024-06-13 12:09 | P.PCN ---
Date of Procedure: 06/13/24 Description of Procedure: PREOPERATIVE DIAGNOSIS: History of colon polyps Colonoscopy screening. POSTOPERATIVE DIAGNOSIS: Colonoscopy screening. Diverticulosis, scattered. OPERATION: Colonoscopy to the cecum, ileocecal valve and appendiceal orifice. SURGEON: Krystin Velazquez MD. ANESTHESIA: MAC. INDICATIONS: The patient is a 69-year-old male who presents for colonoscopy screening. Benefits and risks were described and informed consent was obtained. DESCRIPTION OF PROCEDURE: The patient had undergone GoLytely including lactulose prep for 1 week. The patient had been brought into the operating room and laid in the left lateral decubitus position. After adequate intravenous sedation, the rectum was examined with 2% lidocaine jelly. Prostate fossa was unremarkable. External hemorrhoids were encountered. The rectal tone was within normal limits. No lesions were palpated in the rectal vault. An Olympus colonoscope was advanced until the cecum, ileocecal valve and appendiceal orifice were clearly viewed. The prep was fair. Scattered diverticulosis was encountered. No colonic polyps were found. No evidence of focal colitis was found. Retroflexion of the scope demonstrated grade 1 internal hemorrhoids without active bleeding or inflammation. The colon was desufflated. The patient had tolerated the procedure well. Withdrawal time was over 6 minutes. FINDINGS: Aronchick preparation quality scale 3 (1-5) Internal hemorrhoids, grade 1 External prolapsed hemorrhoids, grade 1 No arteriovenous malformations. No adenomatous polyps. No focal colitis. Highly redundant sigmoid colon requiring abdominal pressure RECOMMENDATIONS: Lower endoscopy in 3 years, 2026 Plan - Discharge Summary Discharge Rx Participant: No New Discharge Prescriptions: Continue Methadone HCl [Dolophine HCl] 20 mg PO QID Gabapentin 900 mg PO QID Spironolactone [Aldactone] 12.5 mg PO DAILY@1800 #30 tab Furosemide [Lasix] 40 mg PO DAILY #30 tab Atorvastatin [Lipitor] 80 mg PO DAILY #30 tab metFORMIN HCL [Glucophage] 1,000 mg PO BID Dapagliflozin Propanediol [Farxiga] 5 mg PO DAILY Amiodarone HCl [Pacerone] 200 mg PO DAILY carvediloL [Coreg] 3.125 mg PO BID Ventolin Inhaler 1 puff INHALATION DIRECTED PRN PRN Reason: sob Melatonin 3 mg PO HS PRN PRN Reason: Insomnia Aspirin 81 mg PO DAILY #30 tab diazePAM [Valium] 5 mg PO DIRECTED PRN PRN Reason: Anxiety Testosterone Cypionate [Depo-Testosterone] 200 mg IM Q10D Clopidogrel [Plavix] 75 mg PO DAILY Mullein Supplement 1 dose PO DAILY Coq10 200 mg PO DAILY Discharge Medication List Methadone HCl [Dolophine HCl] 20 mg PO QID 02/24/16 [History] Gabapentin 900 mg PO QID 07/16/21 [History] Aspirin 81 mg PO DAILY #30 tab 07/18/21 [Rx] Atorvastatin [Lipitor] 80 mg PO DAILY #30 tab 07/18/21 [Rx] Furosemide [Lasix] 40 mg PO DAILY #30 tab 07/18/21 [Rx] Spironolactone [Aldactone] 12.5 mg PO DAILY@1800 #30 tab 07/18/21 [Rx] metFORMIN HCL [Glucophage] 1,000 mg PO BID 08/04/21 [History] Amiodarone HCl [Pacerone] 200 mg PO DAILY 06/12/24 [History] Clopidogrel [Plavix] 75 mg PO DAILY 06/12/24 [History] Coq10 200 mg PO DAILY 06/12/24 [History] Dapagliflozin Propanediol [Farxiga] 5 mg PO DAILY 06/12/24 [History] Melatonin 3 mg PO HS PRN 06/12/24 [History] Mullein Supplement 1 dose PO DAILY 06/12/24 [History] Testosterone Cypionate [Depo-Testosterone] 200 mg IM Q10D 06/12/24 [History] Ventolin Inhaler 1 puff INHALATION DIRECTED PRN 06/12/24 [History] carvediloL [Coreg] 3.125 mg PO BID 06/12/24 [History] diazePAM [Valium] 5 mg PO DIRECTED PRN 06/12/24 [History] Follow up Appointment(s)/Referral(s): Krystin Velazquez MD [STAFF PHYSICIAN] - As Needed Patient Instructions/Handouts: Diverticulosis (GEN), Diverticulosis Diet (GEN) Activity/Diet/Wound Care/Special Instructions: Repeat colonoscopy in 3 years, 2026 Discharge Disposition: HOME SELF-CARE
[2024-06-13 12:13] VITALS: BP 105/63; PULSE 65
== END 2024-06-13 12:37 | disposition home or self-care (01) ==
LOC: ORWHC2ENDO 09:57
PROVIDERS: ATTEND Surgery Plastic and Reconstructive Surgery
DX: Z12.11 Encounter for screening for malignant neoplasm of colon (principal); K57.30 Diverticulosis of large intestine without perforation or abscess without bleeding; K64.0 First degree hemorrhoids; K64.4 Residual hemorrhoidal skin tags; R19.5 Other fecal abnormalities; K63.89 Other specified diseases of intestine; Z86.0100 Personal history of colon polyps, unspecified; E78.5 Hyperlipidemia, unspecified; I25.2 Old myocardial infarction; I10 Essential (primary) hypertension; E11.9 Type 2 diabetes mellitus without complications; F41.9 Anxiety disorder, unspecified; I25.10 Atherosclerotic heart disease of native coronary artery without angina pectoris; M19.90 Unspecified osteoarthritis, unspecified site; J44.9 Chronic obstructive pulmonary disease, unspecified; G47.30 Sleep apnea, unspecified; Z79.899 Other long term (current) drug therapy; Z79.82 Long term (current) use of aspirin; Z79.84 Long term (current) use of oral hypoglycemic drugs; Z79.02 Long term (current) use of antithrombotics/antiplatelets; Z95.1 Presence of aortocoronary bypass graft; Z95.0 Presence of cardiac pacemaker; Z95.5 Presence of coronary angioplasty implant and graft; Z87.891 Personal history of nicotine dependence; Z98.41 Cataract extraction status, right eye; Z98.42 Cataract extraction status, left eye; Z98.890 Other specified postprocedural states; Z88.8 Allergy status to other drugs, medicaments and biological substances
CPT/HCPCS: J2704; G0105; 45378